=== PATIENT | male | born 1965 | race African-American/Black ===

== ENCOUNTER 2016-11-05 17:07 | Emergency (ER) | payer MEDICARE, MEDICAID ==
--- NOTE | 2016-11-05 17:31 | ER Document Report ---
ED Medical Screen (RME) - General Stated Complaint: LEG AND FOOT PAIN Time seen by provider: 17:29 Mode of Arrival: Ambulatory Information source: Patient Notes: 51-year-old male hypertensive, hemodialysis diabetic with a history of sores on his leg had a blister 3 days on the base of his right heel which broke open and now he sees raw skin. No history of ulcers. No fever. I have greeted and performed a rapid initial assessment of this patient. A comprehensive ED assessment, evaluation of the patient, analysis of test results , and completion of the medical decision making process will be contacted by additional ED providers. TRAVEL OUTSIDE OF THE [place] IN LAST 30 DAYS: No - Related Data Allergies/Adverse Reactions: acetaminophen [From Tylenol] Allergy (Severe, Verified 08/15/16 23:55) iodine [Iodine] Allergy (Severe, Verified 08/15/16 17:10) swelling, itching povidone-iodine [From Betadine] Allergy (Severe, Verified 08/15/16 17:10) rash Shellfish * [Shellfish] Allergy (Severe, Verified 08/15/16 17:10) Swelling of Throat Soap [From Betadine] Allergy (Severe, Verified 08/15/16 17:10) rash Past Medical History - Past Medical History Cardiac Medical History: Reports: Hx Congestive Heart Failure, Hx Hypercholesterolemia, Hx Hypertension Denies: Hx Coronary Artery Disease, Hx DVT, Hx Heart Attack, Hx Pulmonary Embolism Pulmonary Medical History: Reports: Hx Asthma, Hx COPD Denies: Hx Bronchitis, Hx Pneumonia, Hx Tuberculosis Neurological Medical History: Denies: Hx Cerebrovascular Accident, Hx Seizures Endocrine Medical History: Reports: Hx Diabetes Mellitus Type 2 Renal/ Medical History: Reports: Hx End Stage Renal Disease GI Medical History: Denies: Hx Cirrhosis, Hx Gastroesophageal Reflux Disease, Hx Hepatitis Musculoskeltal Medical History: Reports Hx Arthritis Psychiatric Medical History: Denies: Hx Depression Infectious Medical History: Denies: Hx Hepatitis Past Surgical History: Reports: Hx Appendectomy, Hx Cholecystectomy, Hx Orthopedic Surgery - right knee surgery, Hx Vascular Surgery - Immunizations Hx Diphtheria, Pertussis, Tetanus Vaccination: Yes - 2009 Physical Exam - Vital signs Vitals: Temp Pulse Resp BP Pulse Ox 98.6 F 112 H 20 221/98 H 95 11/05/16 17:23 11/05/16 17:23 11/05/16 17:23 11/05/16 17:23 11/05/16 17:23 Course - Vital Signs Vital signs: Temp Pulse Resp BP Pulse Ox 98.6 F 112 H 20 221/98 H 95 11/05/16 17:23 11/05/16 17:23 11/05/16 17:23 11/05/16 17:23 11/05/16 17:23
[2016-11-05 18:32] LABS: ABSOLUTE BASOPHILS # (AUTO) 0.1 10^3/uL (0.0-0.2); ABSOLUTE EOSINOPHILS # (AUTO) 0.2 10^3/uL (0.0-0.6); ABSOLUTE LYMPHOCYTES (AUTO) 1.1 10^3/uL (0.5-4.7); ABSOLUTE MONOCYTES (AUTO) 0.4 10^3/uL (0.1-1.4); ABSOLUTE NEUT (AUTO) 6.5 10^3/uL (1.7-8.2); BASOPHILS % (AUTO) 0.7 % (0-2); EOSINOPHILS % (AUTO) 2.9 % (0-6); HEMOGLOBIN 10.5 g/dL (13.5-17.0); HGB HCT DIFFERENCE -0.5; LYMPHOCYTES % (AUTO) 13.6 % (13-45); MEAN CORPUSCULAR HEMOGLOBIN 29.3 pg (27.0-33.4); MEAN CORPUSCULAR HGB CONC 32.8 g/dL (32.0-36.0); MEAN CORPUSCULAR VOLUME 89 fl (80-97); RED BLOOD COUNT 3.58 10^6/uL (4.35-5.55); RED CELL DISTRIBUTION WIDTH 17.2 % (11.5-14.0); SEGMENTED NEUTROPHILS % (AUTO) 77.8 % (42-78); WHITE BLOOD COUNT 8.4 10^3/uL (4.0-10.5)
[2016-11-05 18:56] LABS: ALANINE AMINOTRANSFERASE 30 U/L (21-72); ALBUMIN 4.5 g/dL (3.5-5.0); ALKALINE PHOSPHATASE 272 U/L (38-126); ASPARTATE AMINO TRANSFERASE 21 U/L (17-59); BILIRUBIN,TOTAL 0.9 mg/dL (0.2-1.3); BLOOD UREA NITROGEN 72 mg/dL (7-20); CALCIUM 10.1 mg/dL (8.4-10.2); CHLORIDE 100 mmol/L (98-107); CREATININE RESULT 10.66 mg/dL (0.52-1.25); GLUCOSE 136 mg/dL (75-110); POTASSIUM 4.2 mmol/L (3.6-5.0)
[2016-11-05 19:03] LABS: CARBON DIOXIDE 22 mmol/L (22-30); SODIUM 145.9 mmol/L (137-145)
[2016-11-05 19:05] LABS: ANION GAP 24 (5-19)
--- NOTE | 2016-11-05 19:08 | ER Document Report ---
HPI - HPI Patient complains to provider of: skin tear Pain Level: 3 Context: patient is a 51 year old male with HTN, ESRD on HD, CHF with edema p/w skin tear on RLE. Patient states he had a blister that tore. denies fever, chills, pain - REPRODUCTIVE Reproductive: DENIES: : - DERM Skin Color: Normal Past Medical History - General Information source: Patient - Social History Smoking Status: Current Some Day Smoker Chew tobacco use (# tins/day): No Frequency of alcohol use: None Drug Abuse: None Family History: Reviewed & Not Pertinent Patient has suicidal ideation: No Patient has homicidal ideation: No - Past Medical History Cardiac Medical History: Reports: Hx Congestive Heart Failure, Hx Hypercholesterolemia, Hx Hypertension Denies: Hx Coronary Artery Disease, Hx DVT, Hx Heart Attack, Hx Pulmonary Embolism Pulmonary Medical History: Reports: Hx Asthma, Hx COPD Denies: Hx Bronchitis, Hx Pneumonia, Hx Tuberculosis Neurological Medical History: Denies: Hx Cerebrovascular Accident, Hx Seizures Endocrine Medical History: Reports: Hx Diabetes Mellitus Type 2 Renal/ Medical History: Reports: Hx End Stage Renal Disease. Denies: Hx Peritoneal Dialysis GI Medical History: Denies: Hx Cirrhosis, Hx Gastroesophageal Reflux Disease, Hx Hepatitis Musculoskeltal Medical History: Reports Hx Arthritis Psychiatric Medical History: Denies: Hx Depression Infectious Medical History: Denies: Hx Hepatitis Past Surgical History: Reports: Hx Appendectomy, Hx Cholecystectomy, Hx Orthopedic Surgery - right knee surgery, Hx Vascular Surgery - Immunizations Hx Diphtheria, Pertussis, Tetanus Vaccination: Yes - 2009 Hx Pneumococcal Vaccination: 09/08/13 Vertical Provider Document - CONSTITUTIONAL Agree With Documented VS: Yes Exam Limitations: No Limitations General Appearance: WD/WN, No Apparent Distress - INFECTION CONTROL TRAVEL OUTSIDE OF THE [place] IN LAST 30 DAYS: No - RESPIRATORY O2 Sat by Pulse Oximetry: 95 - CARDIOVASCULAR Cardiovascular: Regular Rate, Regular Rhythm, No Murmur Pulses: Normal: Dorsalis pedis - MUSCULOSKELETAL/EXTREMETIES Musculoskeletal/Extremeties: Edema - 2+ pitting b/l LE's - NEURO Level of Consciousness: Awake, Alert, Appropriate Motor/Sensory: No Motor Deficit, No Sensory Deficit - DERM Integumentary: Warm, Dry - severely dry skin Notes: large 5cm wide skin tear with no tissue loss Course - Re-evaluation Re-evalutation: 11/05/16 19:09 Labs that were ordered in triage reveal baseline creatinine and BUN with patients end-stage renal disease. potassium 4.2. due for dialysis on Monday at [facility] skin tear closed with steri strips and covered with gauze d/c home with instruction to f/u with torpedoman's mate - Vital Signs Vital signs: Temp Pulse Resp BP Pulse Ox 98.6 F 112 H 20 221/98 H 95 11/05/16 17:23 11/05/16 17:23 11/05/16 17:23 11/05/16 17:23 11/05/16 17:23 - Laboratory Result Diagrams: 11/05/16 17:45 11/05/16 17:45 Laboratory results interpreted by me: 11/05/16 11/05/16 17:45 17:45 RBC 3.58 L Hgb 10.5 L Hct 32.0 L RDW 17.2 H Sodium 145.9 H Anion Gap 24 H BUN 72 H Creatinine 10.66 H Est GFR ( Amer) 6 L Est GFR (Non-Af Amer) 5 L Glucose 136 H Alkaline Phosphatase 272 H Discharge - Discharge Clinical Impression: Skin tear Condition: Good Disposition: HOME, SELF-CARE Instructions: Skin Tear ([facility]), Soap Cleansing ([facility]) Additional Instructions: Please follow-up with your torpedoman's mate or Dr. Mcclendon in one week. Forms: Elevated Blood Pressure Referrals: SARAHI MCCLENDON DO [NO LOCAL MD] - Follow up as needed
[2016-11-05 20:14] VITALS: BP 213/93
== END 2016-11-05 20:10 | disposition left against medical advice (07) ==
LOC: ER 17:07
DX: S81.811A Laceration without foreign body, right lower leg, initial encounter (principal); X58.XXXA Exposure to other specified factors, initial encounter; I13.2 Hypertensive heart and chronic kidney disease with heart failure and with stage 5 chronic kidney disease, or end stage renal disease; I50.9 Heart failure, unspecified; I12.0 Hypertensive chronic kidney disease with stage 5 chronic kidney disease or end stage renal disease; E11.22 Type 2 diabetes mellitus with diabetic chronic kidney disease; N18.6 End stage renal disease; Z99.2 Dependence on renal dialysis; F17.200 Nicotine dependence, unspecified, uncomplicated; J44.9 Chronic obstructive pulmonary disease, unspecified; J45.909 Unspecified asthma, uncomplicated
CPT/HCPCS: 36415; 80053; 85025; 87070; 87077; 87186; 87205; 99281

== ENCOUNTER → 2016-11-22 | Outpatient (CLI) | payer MEDICARE, MEDICAID | LOC: OD 12:06 | PROVIDERS: ATTEND Family Medicine | DX: M25.551 Pain in right hip (principal); M25.552 Pain in left hip | CPT/HCPCS: 73522 ==

== ENCOUNTER 2016-11-29 10:55 | Day surgery (SDC) | payer MEDICARE, MEDICAID ==
[2016-11-29] MEDS ORDERED: DIPHENHYDRAMINE HCL 50 MG/ML VIAL ONE (11:57)
[2016-11-29] MEDS ORDERED: ONDANSETRON HCL INJ/PF 4 MG/2 ML SDV ONE (11:57)
[2016-11-29] MEDS ORDERED: NALOXONE HCL INJ/PF 0.4 MG/1 ML SDV ONE (11:57)
[2016-11-29] MEDS ORDERED: PROMETHAZINE HCL INJ 25 MG/1 ML VIAL ONE (11:58)
[2016-11-29] MEDS ORDERED: MIDAZOLAM 2 MG/2 ML INJ ONE ×3 (11:58)
[2016-11-29] MEDS ORDERED: EPINEPHRINE INJ 1 MG/10 ML DISP.SYRIN ONE (11:59)
[2016-11-29] MEDS ORDERED: FLUMAZENIL INJ 0.5 MG/5 ML VIAL IV ONE (11:59)
[2016-11-29] MEDS ORDERED: GLUCAGON,HUMAN RECOMB 1 MG INJ ONE (11:59)
[2016-11-29] MEDS ORDERED: FENTANYL CITRATE INJ/PF 100 MCG/2 ML AMPUL ONE ×2 (11:59)
--- NOTE | 2016-11-29 13:43 | Operative Report ---
Operative Report DATE OF SURGERY: 11/29/16 Operative Report: The risks, benefits and alternatives of the procedure including risks of bleeding, perforation requiring surgery are explained to the patient in detail and informed consent is obtained. Patient is placed in the left lateral decubital position. Patient is taken back to the endoscopy suite. Timeout is called. Conscious sedation medications are provided. A rectal examination was done which did not reveal any masses, tears or fissures. An Olympus videoscope was inserted into the patient's rectum. The scope was then advanced all the way to the cecum. Prep is not good. About 1 L of irrigation had to be used in order to clean the colon. Despite that good visualization is not done. Patient states that he drank all the prep. From the cecum the scope was then sequentially pulled back out via the various segments of the colon. The ascending colon, hepatic flexure, transverse colon, splenic flexure, descending colon and finally into the rectosigmoid colon was evaluated. Random biopsies are taken in the right side of the colon. Patient may possibly have paradoxical diarrhea due to an impaction. No masses, polyps, AVMs, diverticulosis is noted. Retroflexion maneuvers performed. PREOPERATIVE DIAGNOSIS: Diarrhea, change of bowel habits POSTOPERATIVE DIAGNOSIS: Mild right-sided inflammation status post biopsy rule out collagenous, lymphocytic, microscopic colitis. OPERATION: Colonoscopy with biopsy SURGEON: ELIAZAR JIANG ANESTHESIA: LMAC - 2 mg of Versed, 25 g of fentanyl. TISSUE REMOVED OR ALTERED: Right-sided biopsies obtained. COMPLICATIONS: None. INTRAOPERATIVE FINDINGS: Described above. PROCEDURE: Patient tolerated procedure well. No immediate postprocedure complications are noted. Patient discharged in good condition. Discharge date 11/29/2016. Discharge diet: Regular. Discharge activity: Regular. Patient does have a 2-3 week follow-up to discuss findings. We'll await biopsies. Patient is instructed to go to dialysis tomorrow. He is instructed to call the office or proceed to the emergency room if there are any further problems or questions.
[2016-11-29 13:45] VITALS: BP 178/70
== END 2016-11-29 14:00 | disposition home or self-care (01) ==
LOC: END 10:55
PROVIDERS: ATTEND Internal Medicine Gastroenterology
PROC: 0DBF8ZX Excision of Right Large Intestine, Via Natural or Artificial Opening Endoscopic, Diagnostic (ICD-10-PCS; principal; 2016-11-29 12:00)
DX: K52.9 Noninfective gastroenteritis and colitis, unspecified (principal); I12.0 Hypertensive chronic kidney disease with stage 5 chronic kidney disease or end stage renal disease; E11.22 Type 2 diabetes mellitus with diabetic chronic kidney disease; N18.5 Chronic kidney disease, stage 5; E11.3599 Type 2 diabetes mellitus with proliferative diabetic retinopathy without macular edema, unspecified eye; E11.42 Type 2 diabetes mellitus with diabetic polyneuropathy; I48.0 Paroxysmal atrial fibrillation; M19.90 Unspecified osteoarthritis, unspecified site; E78.00 Pure hypercholesterolemia, unspecified; Z79.4 Long term (current) use of insulin; Z79.51 Long term (current) use of inhaled steroids
CPT/HCPCS: 45380; 82962; 88305 ×2; J2250; J3010; J0171; J1200; J1610; J2310; J2405; J2550; J3490

== ENCOUNTER 2016-12-18 13:32 | Emergency (ER) | payer MEDICARE, MEDICAID ==
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
[2016-12-18] MEDS ORDERED: CLONIDINE HCL 0.2 MG TABLET PO ONE (14:19)
[2016-12-18 15:02] LABS: ABSOLUTE BASOPHILS # (AUTO) 0.1 10^3/uL (0.0-0.2); ABSOLUTE EOSINOPHILS # (AUTO) 0.3 10^3/uL (0.0-0.6); ABSOLUTE LYMPHOCYTES (AUTO) 0.8 10^3/uL (0.5-4.7); ABSOLUTE MONOCYTES (AUTO) 0.5 10^3/uL (0.1-1.4); ABSOLUTE NEUT (AUTO) 6.7 10^3/uL (1.7-8.2); BASOPHILS % (AUTO) 0.8 % (0-2); EOSINOPHILS % (AUTO) 3.2 % (0-6); HEMATOCRIT 32.3 % (37.9-51.0); HEMOGLOBIN 10.7 g/dL (13.5-17.0); HGB HCT DIFFERENCE -0.2; LYMPHOCYTES % (AUTO) 10.1 % (13-45); MEAN CORPUSCULAR HEMOGLOBIN 29.2 pg (27.0-33.4); MEAN CORPUSCULAR VOLUME 88 fl (80-97); MONOCYTES % (AUTO) 5.7 % (3-13); RED BLOOD COUNT 3.65 10^6/uL (4.35-5.55); RED CELL DISTRIBUTION WIDTH 17.3 % (11.5-14.0); SEGMENTED NEUTROPHILS % (AUTO) 80.2 % (42-78); WHITE BLOOD COUNT 8.4 10^3/uL (4.0-10.5)
[2016-12-18 15:51] LABS: ALANINE AMINOTRANSFERASE 26 U/L (21-72); ALBUMIN 3.8 g/dL (3.5-5.0); ALKALINE PHOSPHATASE 223 U/L (38-126); ANION GAP 22 (5-19); ASPARTATE AMINO TRANSFERASE 20 U/L (17-59); BLOOD UREA NITROGEN 71 mg/dL (7-20); CARBON DIOXIDE 25 mmol/L (22-30); CHLORIDE 98 mmol/L (98-107); CREATINE KINASE 94 U/L (55-170); CREATININE RESULT 11.61 mg/dL (0.52-1.25); GLUCOSE 158 mg/dL (75-110); MAGNESIUM 1.7 mg/dL (1.6-2.3); POTASSIUM 4.2 mmol/L (3.6-5.0); SODIUM 144.8 mmol/L (137-145); TOTAL PROTEIN 7.3 g/dL (6.3-8.2)
[2016-12-18 16:04] LABS: CREATINE KINASE MB 1.63 ng/mL (<4.55)
[2016-12-18 16:09] LABS: TROPONIN I 0.046 ng/mL
[2016-12-18] MEDS ORDERED: FUROSEMIDE INJ/PF 100 MG/10 ML SDV IV ONE (16:38)
[2016-12-18] MEDS ORDERED: HYDRALAZINE HCL INJ/PF 20 MG/1 ML SDV IV ONE ×2 (17:35→17:49)
[2016-12-18 19:52] LABS: APPEARANCE,URINE TURBID; BILIRUBIN,URINE NEGATIVE (NEGATIVE); GLUCOSE, URINE >=500 mg/dL (NEGATIVE); KETONES,URINE NEGATIVE (NEGATIVE); LEUKOCYTE ESTERASE,URINE LARGE (NEGATIVE); NITRITE,URINE NEGATIVE (NEGATIVE); PROTEIN,URINE >=500 mg/dL (NEGATIVE); UROBILINOGEN,URINE NEGATIVE mg/dL (<2.0)
[2016-12-18 20:03] LABS: URINE BARBITURATES SCREEN NEGATIVE; URINE METHADONE SCREEN NEGATIVE; URINE OPIATES LOW NEGATIVE; URINE PHENCYCLIDINE SCREEN NEGATIVE
--- NOTE | 2016-12-18 20:08 | EKG REPORT ---
SEVERITY:- ABNORMAL ECG - SINUS RHYTHM PROBABLE LEFT ATRIAL ABNORMALITY PROLONGED QT INTERVAL : Confirmed by: Richie West 18-Dec-2016 20:07:34
[2016-12-18] MEDS ORDERED: CEPHALEXIN 500 MG CAPSULE PO ONE (20:43)
[2016-12-18] MEDS ORDERED: SULFAMETHOXAZOLE/TRIMETHOPRIM 800-160 MG TABLET PO ONE (20:51)
[2016-12-18 21:01] VITALS: BP 160/69
== END 2016-12-18 21:12 | disposition home or self-care (01) ==
LOC: ER 13:32
DX: S81.812A Laceration without foreign body, left lower leg, initial encounter (principal); R68.84 Jaw pain; W20.8XXA Other cause of strike by thrown, projected or falling object, initial encounter; Y92.481 Parking lot as the place of occurrence of the external cause; F14.10 Cocaine abuse, uncomplicated; J32.0 Chronic maxillary sinusitis; N39.0 Urinary tract infection, site not specified; I12.0 Hypertensive chronic kidney disease with stage 5 chronic kidney disease or end stage renal disease; E11.22 Type 2 diabetes mellitus with diabetic chronic kidney disease; N18.5 Chronic kidney disease, stage 5; Z99.2 Dependence on renal dialysis; Z91.14 Patient's other noncompliance with medication regimen; J44.9 Chronic obstructive pulmonary disease, unspecified; R05 Cough; F17.210 Nicotine dependence, cigarettes, uncomplicated; Z88.6 Allergy status to analgesic agent; Z88.3 Allergy status to other anti-infective agents; Z91.013 Allergy to seafood
CPT/HCPCS: 93005; 99291; 96374; 96375; 36415; 87086; 82553; 82550; 83735; 85025; 87088; 80053; 81001; 84484; 87186; 80307; 83880; 71010; 70486; 93010; A9270 ×2; J1940; J0360

== ENCOUNTER 2016-12-19 10:15 | Emergency (ER) | payer MEDICARE, MEDICAID ==
[2016-12-19 11:43] LABS: ABSOLUTE BASOPHILS # (AUTO) 0.1 10^3/uL (0.0-0.2); ABSOLUTE EOSINOPHILS # (AUTO) 0.3 10^3/uL (0.0-0.6); ABSOLUTE LYMPHOCYTES (AUTO) 0.7 10^3/uL (0.5-4.7); ABSOLUTE MONOCYTES (AUTO) 0.5 10^3/uL (0.1-1.4); ABSOLUTE NEUT (AUTO) 8.1 10^3/uL (1.7-8.2); EOSINOPHILS % (AUTO) 2.8 % (0-6); HEMATOCRIT 33.3 % (37.9-51.0); HEMOGLOBIN 10.7 g/dL (13.5-17.0); HGB HCT DIFFERENCE -1.2; LYMPHOCYTES % (AUTO) 6.8 % (13-45); MEAN CORPUSCULAR HEMOGLOBIN 28.5 pg (27.0-33.4); MEAN CORPUSCULAR VOLUME 89 fl (80-97); MONOCYTES % (AUTO) 4.7 % (3-13); RED BLOOD COUNT 3.74 10^6/uL (4.35-5.55); RED CELL DISTRIBUTION WIDTH 16.7 % (11.5-14.0); SEGMENTED NEUTROPHILS % (AUTO) 84.7 % (42-78); WHITE BLOOD COUNT 9.6 10^3/uL (4.0-10.5)
--- NOTE | 2016-12-19 11:45 | ER Document Report ---
ED Fall - General Chief Complaint: Fall Stated Complaint: ALTERED MENTAL STATUS Mode of Arrival: Medic Information source: Patient, Emergency Med Personnel TRAVEL OUTSIDE OF THE [place] IN LAST 30 DAYS: No - HPI Notes: Patient presents with report that he missed dialysis again this morning. He states he fell from his wheelchair yesterday and then was somewhat somnolent this morning. EMS blood sugar was 156 and patient had a good sinus rhythm and appropriate vital signs while in route with the exception of some mild hypertension. According to EMS, the patient awakened appropriately and was alert and interactive on my questioning upon arrival. Patient admits that he missed dialysis on Monday and today was due for dialysis. Patient does make urine, and he denies any significant dyspnea he reports no chest pain he denies any headache. He states he normally is in a wheelchair due to chronic foot drop. He denies any change in his bilateral lower extremity wounds. Patient was seen yesterday for the same had a chest x-ray and CT scan of the maxillofacial which showed no significant abnormality. He was found to be positive for cocaine. Patient denies any illegal drug use to me, but he did state that he was extremely tired from earlier and may have been sleeping. - Related data Allergies/Adverse Reactions: acetaminophen [From Tylenol] Allergy (Severe, Verified 11/29/16 11:10) iodine [Iodine] Allergy (Severe, Verified 11/29/16 11:10) swelling, itching povidone-iodine [From Betadine] Allergy (Severe, Verified 11/29/16 11:10) rash Shellfish * [Shellfish] Allergy (Severe, Verified 11/29/16 11:10) Swelling of Throat Soap [From Betadine] Allergy (Severe, Verified 11/29/16 11:10) rash Past Medical History - Social History Smoking Status: Unknown if Ever Smoked Drug Abuse: Cocaine Family History: Reviewed & Not Pertinent - Past Medical History Cardiac Medical History: Reports: Hx Congestive Heart Failure, Hx Hypercholesterolemia, Hx Hypertension Denies: Hx Coronary Artery Disease, Hx DVT, Hx Heart Attack, Hx Pulmonary Embolism Pulmonary Medical History: Reports: Hx Asthma, Hx COPD Denies: Hx Bronchitis, Hx Pneumonia, Hx Tuberculosis Neurological Medical History: Denies: Hx Cerebrovascular Accident, Hx Seizures Endocrine Medical History: Reports: Hx Diabetes Mellitus Type 2 Renal/ Medical History: Reports: Hx End Stage Renal Disease. Denies: Hx Peritoneal Dialysis GI Medical History: Denies: Hx Cirrhosis, Hx Gastroesophageal Reflux Disease, Hx Hepatitis Musculoskeltal Medical History: Reports Hx Arthritis Psychiatric Medical History: Denies: Hx Depression Infectious Medical History: Denies: Hx Hepatitis Past Surgical History: Reports: Hx Appendectomy, Hx Cholecystectomy, Hx Orthopedic Surgery - right knee surgery, Hx Vascular Surgery - Immunizations Hx Diphtheria, Pertussis, Tetanus Vaccination: Yes - 2009 Hx Pneumococcal Vaccination: 09/08/13 Review of Systems - Review of Systems Notes: REVIEW OF SYSTEMS: CONSTITUTIONAL : Denies fever, chills, or sweats. Denies recent illness. EENT: Denies eye, ear, throat, or mouth pain or symptoms. Denies nasal or sinus congestion or discharge. Denies throat, tongue, or mouth swelling or difficulty swallowing. CARDIOVASCULAR: Denies chest pain. Denies palpitations or racing or irregular heart beat. Denies ankle edema. RESPIRATORY: Denies cough, cold, or chest congestion. Denies shortness of breath, difficulty breathing, or wheezing. GASTROINTESTINAL: Denies abdominal pain or distention. Denies nausea, vomiting , or diarrhea. Denies blood in vomitus, stools, or per rectum. Denies black, tarry stools. Denies constipation. GENITOURINARY: Denies difficulty urinating, painful urination, burning, frequency, blood in urine, or discharge. MUSCULOSKELETAL: Denies back or neck pain or stiffness. Denies joint pain or swelling. SKIN: Unchanged sores to both lower extremities. HEMATOLOGIC : Denies easy bruising or bleeding. LYMPHATIC: Denies swollen, enlarged glands. NEUROLOGICAL: Denies dizziness or lightheadedness. Denies headache. Patient denies any new weakness or numbness beyond his chronic baseline. He reports no incontinence. PSYCHIATRIC: Denies anxiety or stress. Denies depression, suicidal ideation, or homicidal ideation. ALL OTHER SYSTEMS REVIEWED AND NEGATIVE. Dictation was performed using [employer] voice recognition software Physical Exam - Vital signs Vitals: Temp Resp BP Pulse Ox 97.7 F 18 199/88 H 98 12/19/16 10:31 12/19/16 10:31 12/19/16 10:31 12/19/16 10:31 - Notes Notes: PHYSICAL EXAMINATION: GENERAL: Well-appearing, well-nourished and in no acute distress. HEAD: Atraumatic, normocephalic. EYES: Pupils equal round and reactive to light, extraocular movements intact, sclera anicteric, conjunctiva mildly injected bilaterally but there is no photophobia. Anterior chambers are clear ENT: Nares patent, oropharynx clear without exudates. Moist mucous membranes. NECK: Normal range of motion, supple without lymphadenopathy LUNGS: Breath sounds equal. No wheezes or rhonchi. Scant rales noted bilaterally HEART: Regular rate and rhythm with 1/6 systolic ejection murmur over the apex. ABDOMEN: Soft, nontender, nondistended abdomen. No guarding, no rebound. No masses appreciated. Musculoskeletal: No cyanosis. Nontender NEUROLOGICAL: Cranial nerves grossly intact. Normal speech, normal gait. Normal sensory, motor exams. patient has mild chronic foot drop noted right greater than left. There is good extensor strength. No other neurologic defects noted.. PSYCH: Normal mood, normal affect. SKIN: Warm, Dry, patient has right great toe small stage II decubitus without evidence for infection. Patient has left anterior [place] stage II decubitus without obvious evidence for infection. Course - Re-evaluation Re-evalutation: 12/19/16 11:47 Left leg wound was rewrapped with Telfa and gauze. No evidence for acute injury, hypoglycemia, cardiac ischemia or arrhythmia. No gross hypoxia or evidence for congestive heart failure, the patient needs dialysis to be performed today given his hypertension and the fact that he missed his Monday dialysis also. Dialysis Center will be contacted immediately to have dialysis performed. Again I have instructed the patient that he needs to avoid cocaine use and to follow-up with his regular practitioner. There is no current evidence suggestive for TIA or CVA or acute neurologic deficit. 12/19/16 11:50 - Vital Signs Vital signs: Temp Pulse Resp BP Pulse Ox 97.7 F 18 199/88 H 98 12/19/16 10:31 12/19/16 10:31 12/19/16 10:31 12/19/16 10:31 - Laboratory Result Diagrams: 12/19/16 11:26 12/19/16 11:26 Laboratory results interpreted by me: 12/19/16 11:11 POC Glucose 112 H - EKG Interpretation by [facility] EKG shows normal: Sinus rhythm Additional EKG results interpreted by me: EKG as interpreted by oh showed normal sinus rhythm heart rate of 80. There is no gross evidence for acute AK or ischemia. Otherwise normal intervals. 12/19/16 11:49 Discharge - Discharge Clinical Impression: Stage II decubitus ulcer, Uncontrolled hypertension, Medical non-compliance, Accidental fall Condition: Stable Disposition: HOME, SELF-CARE
[2016-12-19 12:07] LABS: ALANINE AMINOTRANSFERASE 27 U/L (21-72); ALBUMIN 3.9 g/dL (3.5-5.0); ALCOHOL < 10 mg/dL (NONE DETECTED); ALKALINE PHOSPHATASE 241 U/L (38-126); ANION GAP 23 (5-19); ASPARTATE AMINO TRANSFERASE 21 U/L (17-59); BILIRUBIN,TOTAL 0.8 mg/dL (0.2-1.3); BLOOD UREA NITROGEN 78 mg/dL (7-20); CALCIUM 9.8 mg/dL (8.4-10.2); CARBON DIOXIDE 21 mmol/L (22-30); CHLORIDE 98 mmol/L (98-107); CREATININE RESULT 12.59 mg/dL (0.52-1.25); GLUCOSE 128 mg/dL (75-110); MAGNESIUM 1.9 mg/dL (1.6-2.3); POTASSIUM 4.7 mmol/L (3.6-5.0); SODIUM 141.6 mmol/L (137-145); TOTAL PROTEIN 7.5 g/dL (6.3-8.2)
[2016-12-19 12:28] VITALS: BP 186/94
--- NOTE | 2016-12-19 13:47 | EKG REPORT ---
SEVERITY:- BORDERLINE ECG - SINUS RHYTHM PROBABLE LEFT ATRIAL ABNORMALITY BORDERLINE PROLONGED QT INTERVAL : Confirmed by: Richie West 19-Dec-2016 13:47:05
== END 2016-12-19 12:25 | disposition home or self-care (01) ==
LOC: ER 10:15
DX: L89.892 Pressure ulcer of other site, stage 2 (principal); W05.0XXA Fall from non-moving wheelchair, initial encounter; E11.22 Type 2 diabetes mellitus with diabetic chronic kidney disease; M21.372 Foot drop, left foot; M21.371 Foot drop, right foot; I13.2 Hypertensive heart and chronic kidney disease with heart failure and with stage 5 chronic kidney disease, or end stage renal disease; N18.6 End stage renal disease; E78.00 Pure hypercholesterolemia, unspecified; J45.909 Unspecified asthma, uncomplicated; J44.9 Chronic obstructive pulmonary disease, unspecified; I50.9 Heart failure, unspecified; Z91.14 Patient's other noncompliance with medication regimen; Z99.2 Dependence on renal dialysis; Z88.6 Allergy status to analgesic agent; Z91.013 Allergy to seafood
CPT/HCPCS: 36415; 80053; 80307; 82962; 83735; 85025; 93005; 93010; 99284

== ENCOUNTER 2016-12-25 10:59 | Emergency (ER) | payer MEDICARE, MEDICAID ==
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
[2016-12-25] MEDS ORDERED: HYDROMORPHONE HCL INJ/PF 2 MG/ML AMPULE IM ONE (13:00)
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
[2016-12-25] MEDS ORDERED: CLONIDINE HCL 0.2 MG TABLET PO ONE (14:35)
[2016-12-25] MEDS ORDERED: CYCLOBENZAPRINE HCL 10 MG TABLET PO ONE (14:50)
[2016-12-25] MEDS ORDERED: KETOROLAC TROMETHAMINE INJ/PF 30 MG/1 ML SDV IV ONE (14:52)
[2016-12-25 15:05] LABS: ABSOLUTE BASOPHILS # (AUTO) 0.1 10^3/uL (0.0-0.2); ABSOLUTE EOSINOPHILS # (AUTO) 0.2 10^3/uL (0.0-0.6); ABSOLUTE LYMPHOCYTES (AUTO) 0.8 10^3/uL (0.5-4.7); ABSOLUTE MONOCYTES (AUTO) 0.4 10^3/uL (0.1-1.4); ABSOLUTE NEUT (AUTO) 5.6 10^3/uL (1.7-8.2); BASOPHILS % (AUTO) 1.2 % (0-2); EOSINOPHILS % (AUTO) 2.3 % (0-6); HEMATOCRIT 30.1 % (37.9-51.0); HEMOGLOBIN 9.7 g/dL (13.5-17.0); LYMPHOCYTES % (AUTO) 11.1 % (13-45); MEAN CORPUSCULAR HEMOGLOBIN 28.9 pg (27.0-33.4); MEAN CORPUSCULAR HGB CONC 32.3 g/dL (32.0-36.0); MEAN CORPUSCULAR VOLUME 90 fl (80-97); MONOCYTES % (AUTO) 5.3 % (3-13); RED BLOOD COUNT 3.36 10^6/uL (4.35-5.55); RED CELL DISTRIBUTION WIDTH 17.4 % (11.5-14.0); SEGMENTED NEUTROPHILS % (AUTO) 80.1 % (42-78); WHITE BLOOD COUNT 6.9 10^3/uL (4.0-10.5)
[2016-12-25 15:21] LABS: ALANINE AMINOTRANSFERASE 44 U/L (21-72); ALBUMIN 3.9 g/dL (3.5-5.0); ALKALINE PHOSPHATASE 248 U/L (38-126); ASPARTATE AMINO TRANSFERASE 44 U/L (17-59); BILIRUBIN,TOTAL 0.9 mg/dL (0.2-1.3); BLOOD UREA NITROGEN 112 mg/dL (7-20); CALCIUM 10.2 mg/dL (8.4-10.2); CARBON DIOXIDE 20 mmol/L (22-30); CHLORIDE 99 mmol/L (98-107); GLUCOSE 90 mg/dL (75-110); TOTAL PROTEIN 7.4 g/dL (6.3-8.2)
[2016-12-25 15:30] LABS: CREATININE RESULT 15.49 mg/dL (0.52-1.25)
[2016-12-25 15:37] LABS: SODIUM 145.6 mmol/L (137-145)
[2016-12-25 15:39] LABS: ANION GAP 27 (5-19)
[2016-12-25] MEDS ORDERED: DIPHENHYDRAMINE HCL 50 MG/ML VIAL IV ONE (16:14)
[2016-12-25] MEDS ORDERED: OXYCODONE-ACETAMINOPHEN 5-325 MG TABLET PO ONE (16:14)
[2016-12-25] MEDS ORDERED: HYDRALAZINE HCL INJ/PF 20 MG/1 ML SDV IV ONE (16:14)
[2016-12-25 17:12] VITALS: BP 150/109
--- NOTE | 2016-12-25 20:38 | EKG REPORT ---
SEVERITY:- ABNORMAL ECG - SINUS RHYTHM LEFT ATRIAL ABNORMALITY BORDERLINE PROLONGED QT INTERVAL : Confirmed by: Sunshine Menendez MD 25-Dec-2016 20:38:11
== END 2016-12-25 17:12 | disposition home or self-care (01) ==
LOC: ER 10:59
DX: S39.012D Strain of muscle, fascia and tendon of lower back, subsequent encounter (principal); N18.6 End stage renal disease; M54.5 Low back pain; G89.29 Other chronic pain; I12.0 Hypertensive chronic kidney disease with stage 5 chronic kidney disease or end stage renal disease; Z91.14 Patient's other noncompliance with medication regimen; F17.200 Nicotine dependence, unspecified, uncomplicated; X58.XXXA Exposure to other specified factors, initial encounter
CPT/HCPCS: 93005; 99285; 96372; 96374; 96375; 36415; 85025; 80053; 71111; 72131; 93010; A9270 ×3; J1200; J0360; J1885; J1170

== ENCOUNTER 2017-01-17 17:46 | Inpatient (IN) | payer MEDICARE ==
--- NOTE | 2017-01-17 18:51 | ER Document Report ---
ED Medical Screen (RME) - General Chief Complaint: Numbness Stated Complaint: LEFT LEG NUMBNESS Notes: This 51-year-old male dialysis patient comes emergency room complaining of numbness to the left leg. States she cannot feel anything. He reports falling this past Monday and the previous Monday. He reports the no feeling in the left leg started with the fall a week ago. After the fall he also has more pain with his chronic low back pain than usual. He states he did go to dialysis yesterday. He wants to be admitted to the hospital, as he states there is no one at home to help take care of him. He is known to be noncompliant with medications. He was seen here a month ago complaining of multiple pains, his blood pressure was extremely high and was found to be positive for cocaine at that time. I have greeted and performed a rapid initial assessment of this patient. A comprehensive ED assessment and evaluation of the patient, analysis of test results and completion of the medical decision making process will be conducted by additional ED providers. TRAVEL OUTSIDE OF THE [place] IN LAST 30 DAYS: No - Related Data Allergies/Adverse Reactions: acetaminophen [From Tylenol] Allergy (Severe, Verified 01/17/17 18:20) iodine [Iodine] Allergy (Severe, Verified 01/17/17 18:20) swelling, itching povidone-iodine [From Betadine] Allergy (Severe, Verified 01/17/17 18:20) rash Shellfish * [Shellfish] Allergy (Severe, Verified 01/17/17 18:20) Swelling of Throat Soap [From Betadine] Allergy (Severe, Verified 01/17/17 18:20) rash Past Medical History - Past Medical History Cardiac Medical History: Reports: Hx Congestive Heart Failure, Hx Hypercholesterolemia, Hx Hypertension Denies: Hx Coronary Artery Disease, Hx DVT, Hx Heart Attack, Hx Pulmonary Embolism Pulmonary Medical History: Reports: Hx Asthma, Hx COPD Denies: Hx Bronchitis, Hx Pneumonia, Hx Tuberculosis Neurological Medical History: Denies: Hx Cerebrovascular Accident, Hx Seizures Endocrine Medical History: Reports: Hx Diabetes Mellitus Type 2 Renal/ Medical History: Reports: Hx End Stage Renal Disease. Denies: Hx Peritoneal Dialysis GI Medical History: Denies: Hx Cirrhosis, Hx Gastroesophageal Reflux Disease, Hx Hepatitis Musculoskeltal Medical History: Reports Hx Arthritis Psychiatric Medical History: Denies: Hx Depression Infectious Medical History: Denies: Hx Hepatitis Past Surgical History: Reports: Hx Appendectomy, Hx Cholecystectomy, Hx Orthopedic Surgery - right knee surgery, Hx Vascular Surgery - Immunizations Hx Diphtheria, Pertussis, Tetanus Vaccination: Yes - 2009 Physical Exam - Vital signs Vitals: Temp Pulse Resp BP Pulse Ox 98.1 F 102 H 18 180/92 H 99 01/17/17 18:21 01/17/17 18:21 01/17/17 18:21 01/17/17 18:21 01/17/17 18:21 Course - Vital Signs Vital signs: Temp Pulse Resp BP Pulse Ox 98.1 F 102 H 18 180/92 H 99 01/17/17 18:21 01/17/17 18:21 01/17/17 18:21 01/17/17 18:21 01/17/17 18:21
[2017-01-17 19:08] LABS: ABSOLUTE BASOPHILS # (AUTO) 0.1 10^3/uL (0.0-0.2); ABSOLUTE EOSINOPHILS # (AUTO) 0.2 10^3/uL (0.0-0.6); ABSOLUTE LYMPHOCYTES (AUTO) 0.8 10^3/uL (0.5-4.7); ABSOLUTE MONOCYTES (AUTO) 0.3 10^3/uL (0.1-1.4); ABSOLUTE NEUT (AUTO) 7.5 10^3/uL (1.7-8.2); BASOPHILS % (AUTO) 0.8 % (0-2); EOSINOPHILS % (AUTO) 1.8 % (0-6); HEMATOCRIT 22.5 % (37.9-51.0); HGB HCT DIFFERENCE -0.3; LYMPHOCYTES % (AUTO) 8.8 % (13-45); MEAN CORPUSCULAR HEMOGLOBIN 29.6 pg (27.0-33.4); MEAN CORPUSCULAR VOLUME 90 fl (80-97); MONOCYTES % (AUTO) 3.8 % (3-13); RED CELL DISTRIBUTION WIDTH 19.1 % (11.5-14.0); SEGMENTED NEUTROPHILS % (AUTO) 84.8 % (42-78); WHITE BLOOD COUNT 8.9 10^3/uL (4.0-10.5)
[2017-01-17 19:45] LABS: HEMOGLOBIN 7.4 g/dL (13.5-17.0)
--- NOTE | 2017-01-17 20:58 | ER Document Report ---
ED General - General Chief Complaint: Numbness Stated Complaint: LEFT LEG NUMBNESS Time seen by provider: 20:50 Notes: Patient is a 51-year-old male that comes emergency department for chief complaint of "numbness" in the left leg area, he states he cannot feel his leg, he states noticeable area is in his medial thigh area (he points to the area of his proximal medial thigh). He states he's been feeling weak. He states he has had falls at home, states he fell Monday, fell Monday 3 times, states that ever since Monday he has had the numbness sensation and also has been feeling his chronic lower back pain more than usual. When asked patient admits that he has had black stools for the past 2 days. Patient has had a normal colonoscopy within the past few months, denies history of GI bleed, denies blood thinner use. Patient has multiple comorbidities including end-stage renal disease, had dialysis yesterday, COPD, type II diabetes, and history of medication noncompliance and drug abuse. Patient states he feels like he can't take care of himself, states Dr. Mcclendon his primary care is working on a long-term care facility but this has not happened yet. TRAVEL OUTSIDE OF THE [place] IN LAST 30 DAYS: No - Related Data Allergies/Adverse Reactions: acetaminophen [From Tylenol] Allergy (Severe, Verified 01/17/17 18:20) iodine [Iodine] Allergy (Severe, Verified 01/17/17 18:20) swelling, itching povidone-iodine [From Betadine] Allergy (Severe, Verified 01/17/17 18:20) rash Shellfish * [Shellfish] Allergy (Severe, Verified 01/17/17 18:20) Swelling of Throat Soap [From Betadine] Allergy (Severe, Verified 01/17/17 18:20) rash Past Medical History - General Information source: Patient - Social History Smoking Status: Never Smoker Drug Abuse: Cocaine Lives with: Family Family History: Reviewed & Not Pertinent Patient has suicidal ideation: No Patient has homicidal ideation: No - Past Medical History Cardiac Medical History: Reports: Hx Congestive Heart Failure, Hx Hypercholesterolemia, Hx Hypertension Denies: Hx Coronary Artery Disease, Hx DVT, Hx Heart Attack, Hx Pulmonary Embolism Pulmonary Medical History: Reports: Hx Asthma, Hx COPD Denies: Hx Bronchitis, Hx Pneumonia, Hx Tuberculosis Neurological Medical History: Denies: Hx Cerebrovascular Accident, Hx Seizures Endocrine Medical History: Reports: Hx Diabetes Mellitus Type 2 Renal/ Medical History: Reports: Hx End Stage Renal Disease. Denies: Hx Peritoneal Dialysis GI Medical History: Denies: Hx Cirrhosis, Hx Gastroesophageal Reflux Disease, Hx Hepatitis Musculoskeltal Medical History: Reports Hx Arthritis Psychiatric Medical History: Denies: Hx Depression Infectious Medical History: Denies: Hx Hepatitis Past Surgical History: Reports: Hx Appendectomy, Hx Cholecystectomy, Hx Orthopedic Surgery - right knee surgery, Hx Vascular Surgery - Immunizations Hx Diphtheria, Pertussis, Tetanus Vaccination: Yes - 2009 Hx Pneumococcal Vaccination: 09/08/13 Review of Systems - Review of Systems Constitutional: See HPI EENT: No symptoms reported Cardiovascular: No symptoms reported Respiratory: No symptoms reported Gastrointestinal: See HPI Genitourinary: No symptoms reported Male Genitourinary: No symptoms reported Musculoskeletal: See HPI Skin: No symptoms reported Hematologic/Lymphatic: No symptoms reported Neurological/Psychological: See HPI Physical Exam - Vital signs Vitals: Temp Pulse Resp BP Pulse Ox 98.1 F 102 H 18 180/92 H 99 01/17/17 18:21 01/17/17 18:21 01/17/17 18:21 01/17/17 18:21 01/17/17 18:21 Interpretation: Normal - General General appearance: Other - Patient is disheveled, unshowered, somewhat chronically ill-appearing - HEENT Head: Normocephalic, Atraumatic Eyes: Normal Conjunctiva: Normal Extraocular movements intact: Yes Eyelashes: Normal Pupils: PERRL Nasal: Normal Mouth/Lips: Normal Mucous membranes: Normal Pharynx: Normal Neck: Normal - Respiratory Respiratory status: No respiratory distress Chest status: Nontender Breath sounds: Normal. No: Decreased air movement, Wheezing Chest palpation: Normal - Cardiovascular Rhythm: Regular. No: Tachycardia Heart sounds: Normal auscultation, S1 appreciated, S2 appreciated Murmur: No - Abdominal Inspection: Normal Distension: No distension Bowel sounds: Normal Tenderness: Nontender. No: Tender, Guarding Organomegaly: No organomegaly - Rectal Stool: Other - small amount of blackish stool mixed with brown Hemorrhoids: None Prostate: No: Tender - Back Back: Normal, Nontender. No: Tender - Extremities General upper extremity: Normal inspection, Nontender, Normal strength, Normal temperature, Other - Left arm with dialysis arm port General lower extremity: Other - patient limps with bearing weight on left leg, Mild bilateral LE edema, some venous stasis staining bilaterally, pulses intact , sensation decreased generally. 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 X-rays unremarkable. Patient does admits to chronic distal bilateral lower extremity neuropathy. Patient chronically ill-appearing but is not toxic in appearance. Patient with multiple complaints but the black stools most concerning, performed rectal exam and saw some black stools mixed in with brown. Patient denies history of abdominal bleed, is not on blood thinner, had a normal colonoscopy recently that no endoscopy, patient also has abused cocaine. Abdomen is nontender. Patient is not hypotensive, not tachycardic on my exam, however hemoglobin is only 7.4. This is significantly decreased from prior despite not being microcytic. Clear lungs on examination, no evidence of fluid overload by examination of the patient is borderline hypertensive. Potassium 5.2, patient had dialysis yesterday. Ordering transfusion, starting Protonix, patient will be discussed with hospitalist, confirmed with Dr. Pitts. 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 Discussed with Dr. Cerda, internal medicine, patient will be admitted to the hospital. - Vital Signs Vital signs: Temp Pulse Resp BP Pulse Ox 98.2 F 97 18 171/87 H 97 01/18/17 02:22 01/18/17 02:22 01/18/17 02:22 01/18/17 02:22 01/18/17 02:22 - Laboratory Result Diagrams: 01/17/17 18:50 01/17/17 22:20 Laboratory results interpreted by me: 01/17/17 01/17/17 01/17/17 18:50 18:50 22:20 RBC 2.50 L Hgb 7.4 L Hct 22.5 L RDW 19.1 H Seg Neutrophils % 84.8 H Lymphocytes % 8.8 L Retic Count (auto) 3.74 H PT APTT Potassium 5.2 H Chloride 97 L Carbon Dioxide 16 L Anion Gap 31 H BUN 106 H Creatinine 15.68 H Est GFR ( Amer) 4 L Est GFR (Non-Af Amer) 3 L Calcium 10.3 H TIBC Ferritin Direct Bilirubin 1.1 H Alkaline Phosphatase 270 H Vitamin B12 Crossmatch 01/17/17 01/17/17 01/17/17 22:50 22:50 22:50 RBC Hgb Hct RDW Seg Neutrophils % Lymphocytes % Retic Count (auto) PT 17.0 H APTT 41.4 H Potassium Chloride Carbon Dioxide Anion Gap BUN Creatinine Est GFR ( Amer) Est GFR (Non-Af Amer) Calcium TIBC 167 L Ferritin 1090.00 H Direct Bilirubin Alkaline Phosphatase Vitamin B12 > 1000.0 H Crossmatch See Detail Discharge - Discharge Clinical Impression: Upper GI bleed, Anemia requiring transfusions Fall Qualifiers: Encounter type: initial encounter Qualified Code(s): W19.XXXA - Unspecified fall, initial encounter Condition: Stable Disposition: ADMITTED INPATIENT Admitting Provider: Hospitalist Unit Admitted: Telemetry
[2017-01-17 22:58] LABS: ALANINE AMINOTRANSFERASE 27 U/L (21-72); ALBUMIN 3.7 g/dL (3.5-5.0); ALKALINE PHOSPHATASE 270 U/L (38-126); ASPARTATE AMINO TRANSFERASE 25 U/L (17-59); BILIRUBIN,DIRECT 1.1 mg/dL (0.0-0.4); BILIRUBIN,TOTAL 1.2 mg/dL (0.2-1.3); BLOOD UREA NITROGEN 106 mg/dL (7-20); CALCIUM 10.3 mg/dL (8.4-10.2); CHLORIDE 97 mmol/L (98-107); CREATINE KINASE 95 U/L (55-170); GLUCOSE 109 mg/dL (75-110); POTASSIUM 5.2 mmol/L (3.6-5.0); TOTAL PROTEIN 7.4 g/dL (6.3-8.2)
[2017-01-17 23:04] LABS: CREATININE RESULT 15.68 mg/dL (0.52-1.25)
[2017-01-17 23:18] LABS: CARBON DIOXIDE 16 mmol/L (22-30); SODIUM 143.6 mmol/L (137-145)
[2017-01-17 23:20] LABS: ANION GAP 31 (5-19)
[2017-01-17] MEDS ORDERED: PANTOPRAZOLE SODIUM 40 MG VIAL IV ONE (23:31)
[2017-01-17 23:32] LABS: PARTIAL THROMBOPLASTIN TIME 41.4 SEC (23.5-35.8)
[2017-01-17] MEDS ORDERED: PANTOPRAZOLE SODIUM 40 MG VIAL IV PRN (23:32)
[2017-01-17] MEDS ORDERED: NORMAL SALINE 250 ML IV PRN ×2 (23:32)
[2017-01-18] MEDS ORDERED: LORATADINE 10 MG TABLET PO PRN (00:15)
[2017-01-18] MEDS ORDERED: HYDRALAZINE HCL INJ/PF 20 MG/1 ML SDV IV PRN (00:19)
[2017-01-18] MEDS ORDERED: IPRATROPIUM/ALBUTEROL 0.5-2.5 MG/3 ML AMPUL NEB PRN (00:24)
[2017-01-18] MEDS ORDERED: GLUCAGON,HUMAN RECOMB 1 MG INJ SUBCUT PRN (00:24)
[2017-01-18] MEDS ORDERED: ONDANSETRON HCL INJ/PF 4 MG/2 ML SDV IV PRN (00:24)
[2017-01-18] MEDS ORDERED: DEXTROSE 50%-WATER 25 GM/50 ML DISP.SYRIN IV PRN ×2 (00:24)
[2017-01-18] MEDS ORDERED: NICOTINE 14 MG/24 HR PATCH.TD24 TD PRN (00:24)
[2017-01-18] MEDS ORDERED: DEXTROSE 40% GEL 15 GM TUBE PO PRN ×2 (00:24)
[2017-01-18] MEDS ORDERED: PHYTONADIONE INJ 10 MG/1 ML AMPULE SUBCUT ONE (00:45)
[2017-01-18] MEDS ORDERED: LACTULOSE SYRUP 20 GM/30 ML UDCUP PO ONE (00:45)
[2017-01-18] MEDS ORDERED: NICOTINE 14 MG/24 HR PATCH.TD24 TD ONE (00:45)
--- NOTE | 2017-01-18 01:11 | PDOC H&P ---
History of Present Illness Admission Date/PCP: 01/17/17 23:58 SARAHI YEUNG DO Patient complains of: Falls History of Present Illness: NATHEN DING is a 51 year old male with an extensive past medical history of end-stage renal failure on hemodialysis Monday, Monday and Monday, persistent tobacco dependence, COPD, congestive heart failure, insulin- dependent diabetes, and cocaine positive urine December 2016. In his usual state of health until approximately 3 days ago noted excessive weakness upon transfer sustaining a recent fall to his left side propping his seek evaluation emergency room where his found to have an unremarkable image to his left hip but is found to have anemia with a hemoglobin of 7.4 from a baseline of 9, with heme positive stool. Patient denies dark urine or stool admits recent unremarkable colonoscopy. Denies any recent change in medications. Past Medical History Cardiac Medical History: Reports: Congestive Heart Failure, Hyperlipidema, Hypertension Denies: Coronary Artery Disease, DVT, Myocardial Infarction, Pulmonary Embolism Pulmonary Medical History: Reports: Asthma, Chronic Obstructive Pulmonary Disease (COPD) Denies: Bronchitis, Pneumonia, Tuberculosis Neurological Medical History: Denies: Seizures Endocrine Medical History: Reports: Diabetes Mellitus Type 2 Renal/ Medical History: Reports: End Stage Renal Disease GI Medical History: Denies: Cirrhosis, Gastroesophageal Reflux Disease, Hepatitis Musculoskeltal Medical History: Reports: Arthritis Psychiatric Medical History: Denies: Depression Hematology: Reports: Anemia Past Surgical History Past Surgical History: Reports: Appendectomy, Cholecystectomy, Orthopedic Surgery - right knee surgery, Vascular Surgery Social History Information Source: Patient, [facility] Records Lives with: Alone Smoking Status: Unknown if Ever Smoked Frequency of Alcohol Use: None Hx Recreational Drug Use: No Drugs: None Hx Prescription Drug Abuse: No - Advance Directive Resuscitation Status: Full Code Family History Family History: COPD, Hypertension Parental Family History Reviewed: Yes Children Family History Reviewed: Yes Sibling(s) Family History Reviewed.: Yes Medication/Allergy Home Medications: Omeprazole 20 mg PO DAILY 07/05/16 Sevelamer Carbonate [Renvela] 800 mg PO TID 07/05/16 Vit B Cmplx 3/FA/Vit C/Biotin [Swati-Anoop Rx Tablet] 1 each PO DAILY 07/05/16 Clonidine HCl 0.3 mg PO BID 08/15/16 Insulin Glargine,Hum.rec.anlog [Lantus] 78 unit SQ QHS 08/15/16 Ipratropium/Albuterol Sulfate [Iprat-Albut 0.5-3(2.5) mg/3 ml] 3 ml IH TID 08/15 Lidocaine/Prilocaine [Lidopril 2.5%-2.5% Cream-Dress] 1 each TP ASDIR PRN Metoprolol Succinate 200 mg PO DAILY 08/15/16 Albuterol Sulfate [Albuterol Sulfate 2.5mg/3 mL] 1 vial IH Q4 PRN #30 vial 10/01 Cetirizine HCl 10 mg PO BID PRN #20 tab.chew 10/01/16 Doxycycline Hyclate 100 mg PO BID #14 capsule 10/01/16 Sulfamethoxazole/Trimethoprim [Septra-Ds 800-160 mg Tablet] 1 tab PO BID #20 tablet 12/18/16 Hydrocodone/Acetaminophen [Lortab 5-325 mg Tablet] 1 each PO Q6H PRN #12 tablet 12/25/16 Allergies/Adverse Reactions: acetaminophen [From Tylenol] Allergy (Severe, Verified 01/17/17 18:20) iodine [Iodine] Allergy (Severe, Verified 01/17/17 18:20) swelling, itching povidone-iodine [From Betadine] Allergy (Severe, Verified 01/17/17 18:20) rash Shellfish * [Shellfish] Allergy (Severe, Verified 01/17/17 18:20) Swelling of Throat Soap [From Betadine] Allergy (Severe, Verified 01/17/17 18:20) rash Review of Systems Constitutional: PRESENT: as per HPI, fatigue, weakness. ABSENT: anorexia, chills, fever(s), headache(s), weight gain Eyes: ABSENT: visual disturbances Ears: ABSENT: hearing changes Cardiovascular: ABSENT: chest pain, dyspnea on exertion, edema, orthropnea, palpitations Respiratory: ABSENT: cough, hemoptysis Gastrointestinal: ABSENT: abdominal pain, constipation, diarrhea, hematemesis, hematochezia, nausea, vomiting Genitourinary: ABSENT: dysuria, hematuria Musculoskeletal: PRESENT: back pain - Chronic Integumentary: PRESENT: other - Chronic skin changes of vascular insufficiency of the lower extremity bilaterally evidence of previous ulcerations. ABSENT: rash, wounds Neurological: ABSENT: abnormal gait, abnormal speech, confusion, dizziness, focal weakness, syncope Psychiatric: ABSENT: anxiety, depression, homidical ideation, suicidal ideation Endocrine: ABSENT: cold intolerance, heat intolerance, polydipsia, polyuria Hematologic/Lymphatic: PRESENT: easy bruising. ABSENT: easy bleeding Physical Exam Vital Signs: Temp Pulse Resp BP Pulse Ox 98.1 F 102 H 18 180/92 H 99 01/17/17 18:21 01/17/17 18:21 01/17/17 18:21 01/17/17 18:21 01/17/17 18:21 General appearance: PRESENT: no acute distress, cooperative, disheveled, well- developed, well-nourished Head exam: PRESENT: atraumatic, normocephalic Eye exam: PRESENT: conjunctiva pink, EOMI, PERRLA. ABSENT: scleral icterus Ear exam: PRESENT: normal external ear exam Mouth exam: PRESENT: moist, tongue midline Neck exam: ABSENT: carotid bruit, JVD, lymphadenopathy, thyromegaly Respiratory exam: PRESENT: clear to auscultation molina. ABSENT: rales, rhonchi, wheezes Cardiovascular exam: PRESENT: RRR. ABSENT: diastolic murmur, rubs, systolic murmur Pulses: PRESENT: normal dorsalis pedis pul, +1 pedal pulses bilateral Vascular exam: PRESENT: normal capillary refill GI/Abdominal exam: PRESENT: normal bowel sounds, soft. ABSENT: distended, guarding, mass, organolmegaly, rebound, tenderness Rectal exam: PRESENT: deferred Extremities exam: PRESENT: full ROM, other - Stocking glove numbness, chronic changes of vascular insufficiency with evidence of recent healed ulcerations. ABSENT: calf tenderness, clubbing, pedal edema Neurological exam: PRESENT: alert, awake, oriented to person, oriented to place , oriented to time, oriented to situation, CN II-XII grossly intact. ABSENT: motor sensory deficit Psychiatric exam: PRESENT: anxious, depressed Skin exam: PRESENT: dry, intact, warm, other - Chronic changes of venous insufficiency of the lower extremity. ABSENT: cyanosis, rash Results Impressions: Femur X-Ray 01/17/17 20:52 IMPRESSION: NO RADIOGRAPHIC EVIDENCE OF ACUTE INJURY. Assessment & Plan - Diagnosis (1) End stage renal failure on dialysis Is this a current diagnosis for this admission?: YesPlan: Avoid volume overload, mild hyperkalemia I'll initiate lactulose and reevaluation with nephrology consultation (2) Upper GI bleed Is this a current diagnosis for this admission?: YesPlan: Nothing by mouth, IV Protonix and GI consultation (3) Diabetes mellitus Qualifiers: Diabetes mellitus type: type 1 Is this a current diagnosis for this admission?: YesPlan: Sliding scale insulin and a half dose of his regular long-acting while nothing by mouth (4) Hypertension Is this a current diagnosis for this admission?: YesPlan: Initiate home regiment with when necessary hydralazine (5) Anemia requiring transfusions Is this a current diagnosis for this admission?: YesPlan: Obtain anemia workup, consider transfusion of pack red blood cells if follow-up hemoglobin is trending down - Time Time Spent: 50 to 70 Minutes - Inpatient Certification Medical Necessity: Need Close Monitoring Due to Risk of Patient Decompensation
[2017-01-18] MEDS: CLONIDINE HCL 0.1 MG TABLET PO SCH ×3 (01:40→21:39)
[2017-01-18 02:41] LABS: FOLATE 8.41 ng/mL (>2.76)
[2017-01-18] MEDS: MORPHINE SULFATE 10 MG/ML INJ IV PRN ×2 (03:45→21:59)
[2017-01-18] MEDS ORDERED: HEPARIN SOD (PORCINE) 5,000 UNIT/ML 1 ML SYRINGE SUBCUT SCH (06:00)
[2017-01-18] MEDS ORDERED: METRONIDAZOLE 250 MG TABLET PO SCH (07:00)
[2017-01-18 07:24] LABS: BLOOD UREA NITROGEN 115 mg/dL (7-20); CARBON DIOXIDE 20 mmol/L (22-30); CHLORIDE 97 mmol/L (98-107); GLUCOSE 107 mg/dL (75-110); POTASSIUM 5.5 mmol/L (3.6-5.0); SODIUM 142.4 mmol/L (137-145)
[2017-01-18 07:33] LABS: CREATININE RESULT 15.77 mg/dL (0.52-1.25)
[2017-01-18 07:34] LABS: ANION GAP 25 (5-19)
[2017-01-18] MEDS ORDERED: EPOETIN ALFA INJ 20000 UNIT/1 ML VIAL (RENAL) IV PRN (09:00)
[2017-01-18 09:43] LABS: ABSOLUTE BASOPHILS # (AUTO) 0.1 10^3/uL (0.0-0.2); ABSOLUTE EOSINOPHILS # (AUTO) 0.1 10^3/uL (0.0-0.6); ABSOLUTE LYMPHOCYTES (AUTO) 0.8 10^3/uL (0.5-4.7); ABSOLUTE MONOCYTES (AUTO) 0.4 10^3/uL (0.1-1.4); ABSOLUTE NEUT (AUTO) 6.2 10^3/uL (1.7-8.2); EOSINOPHILS % (AUTO) 1.7 % (0-6); HEMATOCRIT 19.2 % (37.9-51.0); HGB HCT DIFFERENCE -0.6; LYMPHOCYTES % (AUTO) 10.1 % (13-45); MEAN CORPUSCULAR HEMOGLOBIN 29.2 pg (27.0-33.4); MEAN CORPUSCULAR HGB CONC 32.1 g/dL (32.0-36.0); MEAN CORPUSCULAR VOLUME 91 fl (80-97); MONOCYTES % (AUTO) 5.1 % (3-13); RED BLOOD COUNT 2.11 10^6/uL (4.35-5.55); SEGMENTED NEUTROPHILS % (AUTO) 82.1 % (42-78); WHITE BLOOD COUNT 7.5 10^3/uL (4.0-10.5)
[2017-01-18 09:55] LABS: HEMOGLOBIN 6.2 g/dL (13.5-17.0)
[2017-01-18] MEDS ORDERED: METOPROLOL SUCCINATE 50 MG TAB.SR.24H PO SCH ×2 (10:00→22:00)
[2017-01-18] MEDS ORDERED: IPRATROPIUM/ALBUTEROL 0.5-2.5 MG/3 ML AMPUL NEB SCH (10:00)
[2017-01-18] MEDS: FLUTICASONE NASAL SPRAY 50 MCG/SPRY 120 SPRAY/16 GM NASL SCH ×2 (10:24→21:58)
[2017-01-18] MEDS: SEVELAMER HCL 400 MG TABLET PO SCH ×3 (10:24→18:04)
--- NOTE | 2017-01-18 11:14 | PDOC CONSULTATION ---
Consultation Consult Date: 01/18/17 Attending physician:: ELIAZAR JIANG Consult reason:: Chronic anemia. recent unremarkable colonoscopy with no signs of over bleeding. prep was suspect. patient had colonoscopy done by Dr Kohli with almost similar prep, no findings noted at that time also. ? upper GI bleeding, ? AVM's History of Present Illness Admission Date/PCP: 01/18/17 00:24 SARAHI YEUNG DO History of Present Illness: patient was admitted from the ED patient undergoes chronic dialysis and present with decreased H/H I had seem him in Nov, he underwent a colonoscopy prep was not as good, but no signs of overt bleeding could be detected patient was seen in follow up he does say that his stools are dark did not have an EGD at that time getting dialysis now, also receiving some PRBC transfusion will need EGD to rule out for possible AVM bleed Past Medical History Cardiac Medical History: Reports: Congestive Heart Failure, Hyperlipidema, Hypertension Denies: Coronary Artery Disease, DVT, Myocardial Infarction, Pulmonary Embolism Pulmonary Medical History: Reports: Asthma, Chronic Obstructive Pulmonary Disease (COPD) Denies: Bronchitis, Pneumonia, Tuberculosis Neurological Medical History: Denies: Seizures Endocrine Medical History: Reports: Diabetes Mellitus Type 2 Renal/ Medical History: Reports: End Stage Renal Disease GI Medical History: Denies: Cirrhosis, Gastroesophageal Reflux Disease, Hepatitis Musculoskeltal Medical History: Reports: Arthritis Psychiatric Medical History: Denies: Depression Hematology: Reports: Anemia Past Surgical History Past Surgical History: Reports: Appendectomy, Cholecystectomy, Orthopedic Surgery - right knee surgery, Vascular Surgery Social History Lives with: Family Smoking Status: Current Every Day Smoker Frequency of Alcohol Use: None Hx Recreational Drug Use: No Drugs: Cocaine Hx Prescription Drug Abuse: No - Advance Directive Resuscitation Status: Full Code Family History Family History: Reviewed & Not Pertinent Parental Family History Reviewed: Yes Children Family History Reviewed: Unknown Sibling(s) Family History Reviewed.: Unknown Medication/Allergy Home Medications: Albuterol Sulfate [Albuterol Sulfate 2.5mg/3 mL] 1 vial IH RTQ4HP PRN 01/18/17 Albuterol Sulfate [Proair HFA] 2 puff IH Q6HP PRN 01/18/17 Alprazolam [Xanax] 2 mg PO TIDP PRN 01/18/17 Cholestyramine/Aspartame [Questran Light 4 Gm Packet] 4 gm PO AC 01/18/17 Cinacalcet HCl [Sensipar 30 Mg Tablet] 30 mg PO WSUPPER 01/18/17 Clonidine HCl [Catapres 0.3 mg Tablet] 0.3 mg PO Q12 01/18/17 Eluxadoline [Viberzi] 75 mg PO BID 01/18/17 Furosemide [Lasix] 40 mg PO BID 01/18/17 Hydralazine HCl [Apresoline 50 mg Tablet] 50 mg PO Q12 01/18/17 Hydrocodone/Acetaminophen [[place] 5-325 mg Tablet] 1 tab PO Q6HP PRN 01/18/17 Metoprolol Succinate [Toprol XL 100 mg Tablet] 100 mg PO QHS 01/18/17 Mupirocin [Bactroban 2% Ointment 22 gm] 1 applic TP BID 01/18/17 Omeprazole 20 mg PO ACBRKFST 01/18/17 Oxycodone HCl/Acetaminophen [Percocet 10-325 Mg Tablet] 1 each PO Q4HP PRN 01/18 Sevelamer Carbonate [Renvela] 2,400 mg PO MEALS 01/18/17 Sulfamethoxazole/Trimethoprim [Septra-Ds 800-160 mg Tablet] 1 tab PO DAILY 01/18 Vit B Cmplx 3/FA/Vit C/Biotin [Swati-Anoop Rx Tablet] 1 each PO DAILY 01/18/17 Zaleplon [Sonata] 10 mg PO QHS 01/18/17 Allergies/Adverse Reactions: acetaminophen [From Tylenol] Allergy (Severe, Verified 01/17/17 18:20) iodine [Iodine] Allergy (Severe, Verified 01/17/17 18:20) swelling, itching povidone-iodine [From Betadine] Allergy (Severe, Verified 01/17/17 18:20) rash Shellfish * [Shellfish] Allergy (Severe, Verified 01/17/17 18:20) Swelling of Throat Soap [From Betadine] Allergy (Severe, Verified 01/17/17 18:20) rash Review of Systems Constitutional: ABSENT: fever(s), headache(s), night sweats, weakness Eyes: ABSENT: visual disturbances Ears: ABSENT: hearing changes Nose, Mouth, and Throat: ABSENT: mouth pain, sore throat Cardiovascular: ABSENT: chest pain, edema, orthropnea Respiratory: ABSENT: dyspnea, hemoptysis Gastrointestinal: ABSENT: diarrhea, dysphagia, hematochezia, nausea, vomiting Genitourinary: ABSENT: dysuria, hematuria Musculoskeletal: ABSENT: deformity, joint swelling Integumentary: ABSENT: lesions, pruritus Neurological: ABSENT: syncope, tremor(s), vertigo Endocrine: ABSENT: polydipsia, polyphagia, polyuria Hematologic/Lymphatic: ABSENT: easy bruising, lymphadenopathy Physical Exam Vital Signs: Temp Pulse Resp BP Pulse Ox 97.5 F 83 20 154/75 H 100 01/18/17 06:30 01/18/17 07:00 01/18/17 06:30 01/18/17 06:30 01/18/17 06:30 Intake & Output 01/17/17 01/18/17 01/19/17 06:59 06:59 06:59 Intake Total 187 Balance 187 Weight 78.2 kg General appearance: PRESENT: well-developed, well-nourished. ABSENT: no acute distress Head exam: PRESENT: atraumatic, normocephalic Eye exam: PRESENT: EOMI, PERRLA. ABSENT: nystagmus, periorbital swelling, scleral icterus Mouth exam: PRESENT: moist Throat exam: ABSENT: tonsillar exudate, tonsillogmegaly Neck exam: ABSENT: meningismus, tenderness, thyromegaly Respiratory exam: PRESENT: clear to auscultation molina, symmetrical, unlabored. ABSENT: tachypnea, wheezes Cardiovascular exam: PRESENT: RRR, +S1, +S2 GI/Abdominal exam: PRESENT: soft. ABSENT: Mao's sign, rebound, rigid, tenderness Extremities exam: ABSENT: joint swelling Neurological exam: PRESENT: oriented to time, oriented to situation, reflexes normal Psychiatric exam: PRESENT: appropriate affect Skin exam: PRESENT: normal color. ABSENT: mottled, pallor, petechiae, urticaria , vesicles Results Laboratory Results: 01/18/17 08:15 01/18/17 07:04 01/18/17 01/18/17 07:04 08:15 WBC 7.5 RBC 2.11 L Hgb 6.2 L Hct 19.2 L MCV 91 MCH 29.2 MCHC 32.1 RDW 19.0 H Plt Count 197 Seg Neutrophils % 82.1 H Lymphocytes % 10.1 L Monocytes % 5.1 Eosinophils % 1.7 Basophils % 1.0 Absolute Neutrophils 6.2 Absolute Lymphocytes 0.8 Absolute Monocytes 0.4 Absolute Eosinophils 0.1 Absolute Basophils 0.1 Sodium 142.4 Potassium 5.5 H Chloride 97 L Carbon Dioxide 20 L Anion Gap 25 H BUN 115 H Creatinine 15.77 H Est GFR ( Amer) 4 L Est GFR (Non-Af Amer) 3 L Glucose 107 Calcium 10.0 Impressions: Femur X-Ray 01/17/17 20:52 IMPRESSION: NO RADIOGRAPHIC EVIDENCE OF ACUTE INJURY. Assessment & Plan - Diagnosis (1) Anemia requiring transfusions Is this a current diagnosis for this admission?: YesPlan: recent colonoscopy is negative previous to that Dr Kohli performed a colonoscopy that was negative as well may be chronic will need EGD Risks, benefits and alternatives are explained to the patient in detail he is willing to proceed (2) Upper GI bleed Is this a current diagnosis for this admission?: YesPlan: could possibly the origin of blood loss however large volume loss will be more symptomatic could be due to AVM may need ablation will schedule EGD for tomorrow patient is willing to proceed - Time Time Spent: 50 to 70 Minutes
[2017-01-18] MEDS: IPRATROPIUM/ALBUTEROL 0.5-2.5 MG/3 ML AMPUL NEB SCH ×2 (14:02→20:51)
[2017-01-18] MEDS: METRONIDAZOLE 250 MG TABLET PO SCH ×2 (14:13→18:10)
--- NOTE | 2017-01-18 16:28 | PDOC CONSULTATION ---
Consultation Consult Date: 01/18/17 Consult reason:: Hemodialysis, anemia, C. difficile colitis. History of Present Illness Admission Date/PCP: 01/18/17 00:24 SARAHI YEUNG DO History of Present Illness: Chay Camargo is a 51 years old -[place] male with a past medical history significant for severe complicated type 1 diabetes mellitus with history of retinopathy, neuropathy, ESRD on hemodialysis with very poor compliance, with other comorbid issues including hypertension, cocaine abuse is being admitted with history of recurrent falls and some shortness of breath. Is also been having a painless diarrhea going on for the last couple of weeks. He had a C. difficile done couple of days ago and yesterday I was called with results saying that it was C. difficile positive. He has had a previous history of C. difficile colitis approximately couple of months ago and he says he took the full treatment but I have severe doubts to that because he is an extremely noncompliant patient. Patient denies history of fever chills. No history of any bloody stools nausea vomiting. He has had multiple missed treatments. He has also got poor peripheral vascular disease. Past Medical History Cardiac Medical History: Reports: Hyperlipidemia Denies: Coronary Artery Disease, DVT, Myocardial Infarction, Pulmonary Embolism Pulmonary Medical History: Reports: Asthma, Chronic Obstructive Pulmonary Disease (COPD) Denies: Bronchitis, Pneumonia, Tuberculosis Neurological Medical History: Denies: Seizures Endocrine Medical History: Reports: Diabetes Mellitus Type 2 Renal/ Medical History: Reports: End Stage Renal Disease GI Medical History: Denies: Cirrhosis, Gastroesophageal Reflux Disease, Hepatitis Musculoskeltal Medical History: Reports: Arthritis Psychiatric Medical History: Reports: Substance Abuse - With cocaine. Denies: Depression Infectious Medical History: Reports: Clostridium Difficile - He has had a history of positive C. difficile colitis approximately 2 month Hematology Medical History: Reports Anemia of Chronic Kidney Disease Past Surgical History Past Surgical History: Reports: Appendectomy, Cholecystectomy, Orthopedic Surgery - right knee surgery, Vascular Surgery Social History Lives with: Family Smoking Status: Current Every Day Smoker Frequency of Alcohol Use: None Hx Recreational Drug Use: No Drugs: Cocaine Hx Prescription Drug Abuse: No - Advance Directive Resuscitation Status: Full Code Family History Parental Family History Reviewed: Yes Children Family History Reviewed: No Sibling(s) Family History Reviewed.: No Medication/Allergy Home Medications: Albuterol Sulfate [Albuterol Sulfate 2.5mg/3 mL] 1 vial IH RTQ4HP PRN 01/18/17 Albuterol Sulfate [Proair HFA] 2 puff IH Q6HP PRN 01/18/17 Alprazolam [Xanax] 2 mg PO TIDP PRN 01/18/17 Cholestyramine/Aspartame [Questran Light 4 Gm Packet] 4 gm PO AC 01/18/17 Cinacalcet HCl [Sensipar 30 Mg Tablet] 30 mg PO WSUPPER 01/18/17 Clonidine HCl [Catapres 0.3 mg Tablet] 0.3 mg PO Q12 01/18/17 Eluxadoline [Viberzi] 75 mg PO BID 01/18/17 Furosemide [Lasix] 40 mg PO BID 01/18/17 Hydralazine HCl [Apresoline 50 mg Tablet] 50 mg PO Q12 01/18/17 Hydrocodone/Acetaminophen [[place] 5-325 mg Tablet] 1 tab PO Q6HP PRN 01/18/17 Metoprolol Succinate [Toprol XL 100 mg Tablet] 100 mg PO QHS 01/18/17 Mupirocin [Bactroban 2% Ointment 22 gm] 1 applic TP BID 01/18/17 Omeprazole 20 mg PO ACBRKFST 01/18/17 Oxycodone HCl/Acetaminophen [Percocet 10-325 Mg Tablet] 1 each PO Q4HP PRN 01/18 Sevelamer Carbonate [Renvela] 2,400 mg PO MEALS 01/18/17 Sulfamethoxazole/Trimethoprim [Septra-Ds 800-160 mg Tablet] 1 tab PO DAILY 01/18 Vit B Cmplx 3/FA/Vit C/Biotin [Swati-Anoop Rx Tablet] 1 each PO DAILY 01/18/17 Zaleplon [Sonata] 10 mg PO QHS 01/18/17 Allergies/Adverse Reactions: acetaminophen [From Tylenol] Allergy (Severe, Verified 01/17/17 18:20) iodine [Iodine] Allergy (Severe, Verified 01/17/17 18:20) swelling, itching povidone-iodine [From Betadine] Allergy (Severe, Verified 01/17/17 18:20) rash Shellfish * [Shellfish] Allergy (Severe, Verified 01/17/17 18:20) Swelling of Throat Soap [From Betadine] Allergy (Severe, Verified 01/17/17 18:20) rash Review of Systems Review of Systems: My review of system Constitutional: PRESENT: as per HPI. ABSENT: chills, fever( s), headache(s), weight gain, weight loss Eyes: ABSENT: visual disturbances Ears: ABSENT: hearing changes Cardiovascular: ABSENT: chest pain, edema, orthropnea, palpitations Respiratory: ABSENT: cough, hemoptysis Gastrointestinal: ABSENT: abdominal pain, constipation, hematemesis, hematochezia, nausea, vomiting Genitourinary: ABSENT: dysuria, hematuria Musculoskeletal: ABSENT: joint swelling Integumentary: ABSENT: rash, wounds Neurological: ABSENT: abnormal gait, abnormal speech, confusion, dizziness, focal weakness, syncope Psychiatric: ABSENT: anxiety, depression, homicidal ideation, suicidal ideation Endocrine: ABSENT: cold intolerance, heat intolerance, polydipsia, polyuria Hematologic/Lymphatic: ABSENT: easy bleeding, easy bruising, lymphadenopathy Physical Exam Vital Signs: Temp Pulse Resp BP Pulse Ox 97.9 F 81 17 151/66 H 95 01/18/17 13:10 01/18/17 14:02 01/18/17 14:02 01/18/17 13:10 01/18/17 13:10 Intake & Output 01/17/17 01/18/17 01/19/17 06:59 06:59 06:59 Intake Total 187 0 Output Total 2500 Balance 187 -2500 Weight 78.2 kg General appearance: PRESENT: no acute distress Eye exam: PRESENT: conjunctiva pink, EOMI, PERRLA. ABSENT: nystagmus, scleral icterus Ear exam: PRESENT: normal external ear exam Mouth exam: PRESENT: moist, neck supple Neck exam: ABSENT: lymphadenopathy, meningismus, tenderness, thyromegaly, tracheal deviation Respiratory exam: PRESENT: clear to auscultation molina, symmetrical. ABSENT: crackles, rhonchi Cardiovascular exam: PRESENT: +S1, +S2, systolic murmur GI/Abdominal exam: PRESENT: normal bowel sounds, soft. ABSENT: ascites, firm, guarding, organomegaly, tenderness Extremities exam: PRESENT: +1 edema Neurological exam: PRESENT: alert, awake, oriented to person, oriented to place , oriented to time Skin exam: PRESENT: mottled. ABSENT: cyanosis, erythema, rash Results Laboratory Results: 01/18/17 08:15 01/18/17 07:04 01/18/17 01/18/17 07:04 08:15 WBC 7.5 RBC 2.11 L Hgb 6.2 L Hct 19.2 L MCV 91 MCH 29.2 MCHC 32.1 RDW 19.0 H Plt Count 197 Seg Neutrophils % 82.1 H Lymphocytes % 10.1 L Monocytes % 5.1 Eosinophils % 1.7 Basophils % 1.0 Absolute Neutrophils 6.2 Absolute Lymphocytes 0.8 Absolute Monocytes 0.4 Absolute Eosinophils 0.1 Absolute Basophils 0.1 Sodium 142.4 Potassium 5.5 H Chloride 97 L Carbon Dioxide 20 L Anion Gap 25 H BUN 115 H Creatinine 15.77 H Est GFR ( Amer) 4 L Est GFR (Non-Af Amer) 3 L Glucose 107 Calcium 10.0 Impressions: Femur X-Ray 01/17/17 20:52 IMPRESSION: NO RADIOGRAPHIC EVIDENCE OF ACUTE INJURY. Assessment & Plan - Diagnosis (1) Clostridium difficile colitis Plan: Begin him on Flagyl. Monitor. (2) Anemia requiring transfusions Is this a current diagnosis for this admission?: YesPlan: Patient has been transfused and posttransfusion hemoglobin was 7 plus. However the predialysis hemoglobin was done as he had his transfusions done by them and it came back at 6.2 and is being typed and crossmatched for 2 more units as he is being referred to GI for further evaluation. He is currently hemodynamically stable (3) End stage renal failure on dialysis Is this a current diagnosis for this admission?: YesPlan: Patient seen on dialysis. He is undergoing dialysis without any issues. Orders were discussed with the treating nurse Telma. (4) Fall Qualifiers: Encounter type: initial encounter Qualified Code(s): W19.XXXA - Unspecified fall, initial encounter Plan: As per hospitalist (6) Diabetes mellitus Qualifiers: Diabetes mellitus type: type 1 Is this a current diagnosis for this admission?: YesPlan: Advised on diet controlled but patient is not a history of severe noncompliance with diet and medications and coming for dialysis treatments. These all play into each other. (7) Hyperkalemia Plan: Discussed diet. Should respond to dialysis. Monitor.
--- NOTE | 2017-01-18 17:43 | PDOC PROGRESS REPORT ---
Subjective Progress Note for:: 01/18/17 Subjective:: The patient was seen earlier today on rounds. The patient was dialyzed today. The patient did receive a unit of packed red blood cells. The patient has had no further evidence of overt bleeding. The patient denies any nausea, vomiting , diarrhea, shortness of breath, dizziness, chest pain, heart palpitations, fevers, or chills. The patient has remained afebrile. Blood pressures have been in a good range. When prompted the patient voices no other concerns at this time. Review of systems: The rest of the review of systems is negative. Physical Exam Vital Signs: Temp Pulse Resp BP Pulse Ox 97.9 F 90 16 153/79 H 98 01/18/17 17:30 01/18/17 17:30 01/18/17 17:30 01/18/17 17:30 01/18/17 17:30 Intake & Output 01/16/17 01/17/17 01/18/17 23:59 23:59 23:59 Intake Total 387 Output Total 2500 Balance -2113 Weight 78.2 kg General appearance: PRESENT: no acute distress, cooperative, well-developed, well-nourished Head exam: PRESENT: atraumatic, normocephalic Eye exam: PRESENT: conjunctiva pink, EOMI, PERRLA. ABSENT: scleral icterus Ear exam: PRESENT: normal external ear exam Mouth exam: PRESENT: moist, tongue midline Neck exam: ABSENT: carotid bruit, JVD, lymphadenopathy, thyromegaly Respiratory exam: PRESENT: clear to auscultation molina. ABSENT: rales, rhonchi, wheezes Cardiovascular exam: PRESENT: RRR. ABSENT: diastolic murmur, rubs, systolic murmur Pulses: PRESENT: normal dorsalis pedis pul Vascular exam: PRESENT: normal capillary refill GI/Abdominal exam: PRESENT: normal bowel sounds, soft. ABSENT: distended, guarding, mass, organolmegaly, rebound, tenderness Rectal exam: PRESENT: deferred Extremities exam: PRESENT: full ROM. ABSENT: calf tenderness, clubbing, pedal edema Neurological exam: PRESENT: alert, awake, oriented to person, oriented to place , oriented to time, oriented to situation, CN II-XII grossly intact. ABSENT: motor sensory deficit Psychiatric exam: PRESENT: appropriate affect, normal mood. ABSENT: homicidal ideation, suicidal ideation Skin exam: PRESENT: dry, intact, warm. ABSENT: cyanosis, rash Results Laboratory Results: 01/18/17 08:15 01/18/17 07:04 01/18/17 01/18/17 07:04 08:15 WBC 7.5 RBC 2.11 L Hgb 6.2 L Hct 19.2 L MCV 91 MCH 29.2 MCHC 32.1 RDW 19.0 H Plt Count 197 Seg Neutrophils % 82.1 H Lymphocytes % 10.1 L Monocytes % 5.1 Eosinophils % 1.7 Basophils % 1.0 Absolute Neutrophils 6.2 Absolute Lymphocytes 0.8 Absolute Monocytes 0.4 Absolute Eosinophils 0.1 Absolute Basophils 0.1 Sodium 142.4 Potassium 5.5 H Chloride 97 L Carbon Dioxide 20 L Anion Gap 25 H BUN 115 H Creatinine 15.77 H Est GFR ( Amer) 4 L Est GFR (Non-Af Amer) 3 L Glucose 107 Calcium 10.0 Impressions: Femur X-Ray 01/17/17 20:52 IMPRESSION: NO RADIOGRAPHIC EVIDENCE OF ACUTE INJURY. Assessment & Plan - Diagnosis (1) Anemia requiring transfusions Is this a current diagnosis for this admission?: YesPlan: Do appreciate GI input the patient will undergo endoscopy in a.m. The patient is intolerant and cross and is to receive 2 units of packed red blood cells. (2) End stage renal failure on dialysis Is this a current diagnosis for this admission?: YesPlan: Do appreciate Dr. Cartwright is input with this (3) Hyperkalemia Is this a current diagnosis for this admission?: YesPlan: Do appreciate nephrology input will follow. Could possibly be due to GI bleed. (4) Upper GI bleed Is this a current diagnosis for this admission?: Yes (6) Anisocoria Is this a current diagnosis for this admission?: No (7) Diabetes mellitus type 1 Qualifiers: Diabetes mellitus complication status: with unspecified complications Qualified Code(s): E10.8 - Type 1 diabetes mellitus with unspecified complications Is this a current diagnosis for this admission?: Yes (8) Hypertension Qualifiers: Hypertension type: essential hypertension Qualified Code(s): I10 - Essential (primary) hypertension Is this a current diagnosis for this admission?: YesPlan: Will continue home medications. - Time Time Spent with patient: 35 or more minutes Medications reviewed and adjusted accordingly: Yes Anticipated discharge: Home Within: within 24 hours, within 48 hours
[2017-01-18] MEDS ORDERED: ALPRAZOLAM 0.5 MG TABLET PO PRN (17:53)
--- NOTE | 2017-01-18 20:59 | OPERATIVE REPORT E ---
Operative Report NAME: NATHEN DING : 1965 AGE: 51Y DATE OF SURGERY: 01/18/2017 ROOM: 426 PREOPERATIVE DIAGNOSES: 1. Poor veins for intravenous access. 2. End-stage renal disease. 3. Gastrointestinal bleed. POSTOPERATIVE DIAGNOSES: 1. Poor veins for intravenous access. 2. End-stage renal disease. 3. Gastrointestinal bleed. OPERATION: Insertion of right internal jugular vein triple-lumen catheter under ultrasound guidance. SURGEON: LALITHA BOOTHE M.D. ANESTHESIA: Local. INDICATIONS: This is a 51-year-old male on hemodialysis and noted to have GI bleed and needed IV access. PROCEDURE: The patient was placed in supine position and the right neck exposed and prepped and draped in the usual sterile fashion. Local anesthesia infiltrated along the tract of the distal sternocleidomastoid muscle. An ultrasound was then used to identify the internal jugular vein. The internal jugular vein was subsequently punctured and guidewire inserted through the needle into the superior vena cava. The needle was removed, and the puncture site was enlarged with an 11-blade. Next, a dilator was passed over the guidewire towards the superior vena cava. The dilator removed, and a triple-lumen catheter inserted up to about 15 cm. Next, the 3 ports of the catheter were then aspirated and then injected with saline. There were easy aspirations of venous blood and this injection of saline. Next, the catheter was then anchored to the skin with 3-0 silk and anchored to the base of the triple-lumen catheter. A *------* was placed at the insertion site, and a transparent dressing was then placed over the triple-lumen catheter. The patient tolerated the procedure well. A chest x-ray will be obtained. DICTATING PHYSICIAN: LALITHA BOOTHE M.D. [id number] PHY#: [id number] 2018 ID: [id number] JOB#: [id number] ACCT: [id number] cc:LALITHA BOOTHE M.D. >
[2017-01-18] MEDS: HYDRALAZINE HCL 50 MG TABLET PO SCH (21:40)
[2017-01-18] MEDS: INSULIN GLARGINE,HUM.REC.ANLOG 1,000 UNIT/10 ML UNIT SUBCUT SCH (21:57)
[2017-01-18] MEDS ORDERED: (PENDING PHARMACY ID) (Zaleplon [Sonata] 10 MG) PO SCH (22:00)
[2017-01-18] MEDS ORDERED: (PENDING PHARMACY ID) (Clonidine Hcl [Catapres 0.3 Mg Tablet] 0.3 MG) PO SCH (22:00)
[2017-01-18] MEDS ORDERED: INSULIN GLARGINE,HUM.REC.ANLOG 1,000 UNIT/10 ML UNIT SUBCUT SCH (22:00)
[2017-01-19] MEDS: METRONIDAZOLE 250 MG TABLET PO SCH ×3 (02:36→18:43)
[2017-01-19 03:04] LABS: ABSOLUTE EOSINOPHILS # (AUTO) 0.2 10^3/uL (0.0-0.6); ABSOLUTE LYMPHOCYTES (AUTO) 0.8 10^3/uL (0.5-4.7); ABSOLUTE MONOCYTES (AUTO) 0.4 10^3/uL (0.1-1.4); ABSOLUTE NEUT (AUTO) 6.5 10^3/uL (1.7-8.2); BASOPHILS % (AUTO) 0.6 % (0-2); EOSINOPHILS % (AUTO) 2.2 % (0-6); HEMATOCRIT 23.1 % (37.9-51.0); HGB HCT DIFFERENCE -0.6; LYMPHOCYTES % (AUTO) 9.6 % (13-45); MEAN CORPUSCULAR HEMOGLOBIN 30.2 pg (27.0-33.4); MEAN CORPUSCULAR HGB CONC 32.6 g/dL (32.0-36.0); MEAN CORPUSCULAR VOLUME 93 fl (80-97); MONOCYTES % (AUTO) 5.6 % (3-13); RED BLOOD COUNT 2.49 10^6/uL (4.35-5.55); RED CELL DISTRIBUTION WIDTH 18.3 % (11.5-14.0); WHITE BLOOD COUNT 7.9 10^3/uL (4.0-10.5)
[2017-01-19 03:09] LABS: HEMOGLOBIN 7.5 g/dL (13.5-17.0)
[2017-01-19 06:18] LABS: ABSOLUTE EOSINOPHILS # (AUTO) 0.2 10^3/uL (0.0-0.6); ABSOLUTE LYMPHOCYTES (AUTO) 0.7 10^3/uL (0.5-4.7); ABSOLUTE MONOCYTES (AUTO) 0.4 10^3/uL (0.1-1.4); ABSOLUTE NEUT (AUTO) 6.4 10^3/uL (1.7-8.2); BASOPHILS % (AUTO) 0.5 % (0-2); EOSINOPHILS % (AUTO) 2.1 % (0-6); HEMATOCRIT 23.2 % (37.9-51.0); HGB HCT DIFFERENCE -0.4; LYMPHOCYTES % (AUTO) 8.9 % (13-45); MEAN CORPUSCULAR HEMOGLOBIN 30.5 pg (27.0-33.4); MEAN CORPUSCULAR HGB CONC 32.9 g/dL (32.0-36.0); MEAN CORPUSCULAR VOLUME 93 fl (80-97); MONOCYTES % (AUTO) 5.7 % (3-13); RED CELL DISTRIBUTION WIDTH 18.3 % (11.5-14.0); SEGMENTED NEUTROPHILS % (AUTO) 82.8 % (42-78); WHITE BLOOD COUNT 7.7 10^3/uL (4.0-10.5)
[2017-01-19 06:25] LABS: CARBON DIOXIDE 24 mmol/L (22-30); CREATININE RESULT 9.38 mg/dL (0.52-1.25); GLUCOSE 104 mg/dL (75-110)
[2017-01-19 06:36] LABS: CHLORIDE 98 mmol/L (98-107); HEMOGLOBIN 7.6 g/dL (13.5-17.0); SODIUM 142.5 mmol/L (137-145)
[2017-01-19 06:41] LABS: ANION GAP 21 (5-19); BLOOD UREA NITROGEN 54 mg/dL (7-20); POTASSIUM 4.1 mmol/L (3.6-5.0)
[2017-01-19] MEDS ORDERED: (PENDING PHARMACY ID) (Sevelamer Carbonate [Renvela] 2,400 MG) PO SCH (08:00)
[2017-01-19] MEDS: IPRATROPIUM/ALBUTEROL 0.5-2.5 MG/3 ML AMPUL NEB SCH ×2 (08:52→14:03)
[2017-01-19] MEDS ORDERED: (PENDING PHARMACY ID) (Vit B Cmplx 3/Fa/Vit C/Biotin [Rena-Vite Rx Tablet] 1 EACH) PO SCH (10:00)
[2017-01-19] MEDS: SEVELAMER HCL 400 MG TABLET PO SCH ×3 (11:09→18:43)
[2017-01-19] MEDS: FOLIC ACID/VITAMIN B COMP W-C CAPSULE PO SCH (11:09)
[2017-01-19] MEDS: LANSOPRAZOLE 15 MG TAB.RAP.DR PO SCH (11:09)
[2017-01-19] MEDS: HYDRALAZINE HCL 50 MG TABLET PO SCH ×2 (11:44→21:49)
[2017-01-19] MEDS: CLONIDINE HCL 0.1 MG TABLET PO SCH ×2 (11:44→21:49)
[2017-01-19] MEDS: FLUTICASONE NASAL SPRAY 50 MCG/SPRY 120 SPRAY/16 GM NASL SCH ×2 (11:45→21:50)
[2017-01-19] MEDS ORDERED: ONDANSETRON HCL INJ/PF 4 MG/2 ML SDV IV PRN (11:46)
[2017-01-19] MEDS ORDERED: EPOETIN ALFA INJ 20000 UNIT/1 ML VIAL (RENAL) IV PRN (11:51)
--- NOTE | 2017-01-19 12:14 | PDOC PROGRESS REPORT ---
Subjective Progress Note for:: 01/19/17 Subjective:: Patient was seen this morning. He is unhappy that he is n.p.o. for his endoscopy because of his drop in his hemoglobin. He says he is having some nausea and some epigastric discomfort. He thinks that is because he is hungry and has not been given anything to eat. He states his diarrhea has gotten better over the last 2 days. No history of any fever chills. No history of chest pain shortness of breath. Labs were reviewed with the patient. Physical Exam Vital Signs: Temp Pulse Resp BP Pulse Ox 98.6 F 92 20 125/69 100 01/19/17 07:46 01/19/17 08:52 01/19/17 08:52 01/19/17 07:46 01/19/17 08:52 Intake & Output 01/18/17 01/19/17 01/20/17 06:59 06:59 06:59 Intake Total 187 1700 Output Total 2500 Balance 187 -800 Weight 78.2 kg 78.5 kg General appearance: PRESENT: no acute distress Respiratory exam: PRESENT: clear to auscultation molina. ABSENT: crackles, decreased breath sounds, rhonchi Cardiovascular exam: PRESENT: +S1, +S2, systolic murmur GI/Abdominal exam: PRESENT: normal bowel sounds, soft. ABSENT: ascites, firm, guarding, organomegaly, tenderness Extremities exam: PRESENT: pedal edema Neurological exam: PRESENT: alert, awake, oriented to person, oriented to place , oriented to time Results Laboratory Results: 01/19/17 05:45 01/19/17 05:45 01/19/17 01/19/17 01/19/17 02:30 05:45 05:45 WBC 7.9 7.7 RBC 2.49 L 2.50 L Hgb 7.5 L 7.6 L Hct 23.1 L 23.2 L MCV 93 93 MCH 30.2 30.5 MCHC 32.6 32.9 RDW 18.3 H 18.3 H Plt Count 188 180 Seg Neutrophils % 82.0 H 82.8 H Lymphocytes % 9.6 L 8.9 L Monocytes % 5.6 5.7 Eosinophils % 2.2 2.1 Basophils % 0.6 0.5 Absolute Neutrophils 6.5 6.4 Absolute Lymphocytes 0.8 0.7 Absolute Monocytes 0.4 0.4 Absolute Eosinophils 0.2 0.2 Absolute Basophils 0.0 0.0 Sodium 142.5 Potassium 4.1 D Chloride 98 Carbon Dioxide 24 Anion Gap 21 H BUN 54 H D Creatinine 9.38 H Est GFR ( Amer) 7 L Est GFR (Non-Af Amer) 6 L Glucose 104 Calcium 9.0 Impressions: Femur X-Ray 01/17/17 20:52 IMPRESSION: NO RADIOGRAPHIC EVIDENCE OF ACUTE INJURY. Chest X-Ray 01/18/17 00:00 IMPRESSION: Interval improvement. Assessment & Plan - Diagnosis (1) Clostridium difficile colitis Plan: Patient currently on Flagyl as per positive serology on outpatient labs done just before his admission. (2) Anemia requiring transfusions Is this a current diagnosis for this admission?: YesPlan: As per hospitalist and Dr. Manjarrez/gastroenterology. (3) End stage renal failure on dialysis Is this a current diagnosis for this admission?: YesPlan: Orders have been placed for hemodialysis in the morning. I am off on medication for the next [address] Gerber will be covering me in my absence. (4) Fall Qualifiers: Encounter type: initial encounter Qualified Code(s): W19.XXXA - Unspecified fall, initial encounter (5) Atrial fibrillation with rapid ventricular response Plan: Controlled rate (6) Diabetes mellitus Qualifiers: Diabetes mellitus type: type 1 Is this a current diagnosis for this admission?: YesPlan: Advised on diet and tight blood sugar control (7) Hyperkalemia Is this a current diagnosis for this admission?: YesPlan: Resolved with dialysis. Discussed diet again. Discussed implications of hypertension including cardiac arrest. However all these advises and recommendations have fallen on deaf years for this gentleman which is unfortunate.
[2017-01-19] MEDS ORDERED: DIPHENHYDRAMINE HCL 50 MG/ML VIAL ONE (13:01)
[2017-01-19] MEDS ORDERED: NALOXONE HCL INJ/PF 0.4 MG/1 ML SDV ONE (13:01)
[2017-01-19] MEDS ORDERED: ONDANSETRON HCL INJ/PF 4 MG/2 ML SDV ONE (13:01)
[2017-01-19] MEDS ORDERED: MIDAZOLAM 2 MG/2 ML INJ ONE ×2 (13:01→13:02)
[2017-01-19] MEDS ORDERED: GLUCAGON,HUMAN RECOMB 1 MG INJ ONE (13:02)
[2017-01-19] MEDS ORDERED: EPINEPHRINE INJ 1 MG/10 ML DISP.SYRIN ONE (13:02)
[2017-01-19] MEDS ORDERED: FENTANYL CITRATE INJ/PF 100 MCG/2 ML AMPUL ONE (13:02)
--- NOTE | 2017-01-19 13:50 | Operative Report ---
Operative Report DATE OF SURGERY: 01/19/17 Operative Report: The risks benefits and alternatives of the procedure explained to the patient in detail and informed consent is obtained that GIF Olympus video scope was inserted into the patient's mouth and hypopharynx the esophagus is identified intubated and insufflated the scope was then advanced through the esophagus stomach and duodenum retroflexion maneuver is done the esophagus stomach and first and second portions of the duodenum examined PREOPERATIVE DIAGNOSIS: Possible GI bleeding chronic anemia POSTOPERATIVE DIAGNOSIS: Gastritis status post biopsy. No evidence of bleeding OPERATION: EGD with biopsy SURGEON: ELIAZAR JIANG ANESTHESIA: Moderate Sedation - 2 mg of Versed. Conscious sedation monitoring time 15 minutes. TISSUE REMOVED OR ALTERED: Mucosal specimen obtained rule out Helicobacter pylori COMPLICATIONS: None. ESTIMATED BLOOD LOSS: none. INTRAOPERATIVE FINDINGS: Described above. PROCEDURE: Patient tolerated procedure well. No immediate postprocedure complications are noted. Patient is discharged in good condition. Discharge date 01/19/2017. Discharge diet: Regular. Discharge activity: Regular. 2-3 week follow-up to discuss findings. Patient is instructed to call the office should there be any further problems or questions. We'll await on biopsies.
--- NOTE | 2017-01-19 16:37 | PDOC PROGRESS REPORT ---
Subjective Progress Note for:: 01/19/17 Subjective:: The patient was seen earlier today on rounds. The patient had an essentially unremarkable EGD today. No evidence of stigmata. The patient has had no evidence of overt bleeding no melena or bright red bleeding per rectum. The patient has had no further evidence of overt bleeding. The patient denies any nausea, vomiting, diarrhea, shortness of breath, dizziness, chest pain, heart palpitations, fevers, or chills. The patient has remained afebrile. Blood pressures have been in a good range. When prompted the patient voices no other concerns at this time. Review of systems: The rest of the review of systems is negative. Physical Exam Vital Signs: Temp Pulse Resp BP Pulse Ox 98.6 F 65 12 132/72 H 92 01/19/17 07:46 01/19/17 14:10 01/19/17 14:10 01/19/17 14:10 01/19/17 14:10 Intake & Output 01/17/17 01/18/17 01/19/17 23:59 23:59 23:59 Intake Total 1237 800 Output Total 2500 Balance -1263 800 Weight 78.2 kg 78.5 kg General appearance: PRESENT: no acute distress, cooperative, well-developed, well-nourished Head exam: PRESENT: atraumatic, normocephalic Eye exam: PRESENT: conjunctiva pink, EOMI, PERRLA. ABSENT: scleral icterus Ear exam: PRESENT: normal external ear exam Mouth exam: PRESENT: moist, tongue midline Neck exam: ABSENT: carotid bruit, JVD, lymphadenopathy, thyromegaly Respiratory exam: PRESENT: clear to auscultation molina. ABSENT: rales, rhonchi, wheezes Cardiovascular exam: PRESENT: RRR. ABSENT: diastolic murmur, rubs, systolic murmur Pulses: PRESENT: normal dorsalis pedis pul Vascular exam: PRESENT: normal capillary refill GI/Abdominal exam: PRESENT: normal bowel sounds, soft. ABSENT: distended, guarding, mass, organolmegaly, rebound, tenderness Rectal exam: PRESENT: deferred Extremities exam: PRESENT: full ROM. ABSENT: calf tenderness, clubbing, pedal edema Neurological exam: PRESENT: alert, awake, oriented to person, oriented to place , oriented to time, oriented to situation, CN II-XII grossly intact. ABSENT: motor sensory deficit Psychiatric exam: PRESENT: appropriate affect, normal mood. ABSENT: homicidal ideation, suicidal ideation Skin exam: PRESENT: dry, intact, warm. ABSENT: cyanosis, rash Results Laboratory Results: 01/19/17 05:45 01/19/17 05:45 01/19/17 01/19/17 01/19/17 02:30 05:45 05:45 WBC 7.9 7.7 RBC 2.49 L 2.50 L Hgb 7.5 L 7.6 L Hct 23.1 L 23.2 L MCV 93 93 MCH 30.2 30.5 MCHC 32.6 32.9 RDW 18.3 H 18.3 H Plt Count 188 180 Seg Neutrophils % 82.0 H 82.8 H Lymphocytes % 9.6 L 8.9 L Monocytes % 5.6 5.7 Eosinophils % 2.2 2.1 Basophils % 0.6 0.5 Absolute Neutrophils 6.5 6.4 Absolute Lymphocytes 0.8 0.7 Absolute Monocytes 0.4 0.4 Absolute Eosinophils 0.2 0.2 Absolute Basophils 0.0 0.0 Sodium 142.5 Potassium 4.1 D Chloride 98 Carbon Dioxide 24 Anion Gap 21 H BUN 54 H D Creatinine 9.38 H Est GFR ( Amer) 7 L Est GFR (Non-Af Amer) 6 L Glucose 104 Calcium 9.0 Impressions: Femur X-Ray 01/17/17 20:52 IMPRESSION: NO RADIOGRAPHIC EVIDENCE OF ACUTE INJURY. Chest X-Ray 01/18/17 00:00 IMPRESSION: Interval improvement. Venous Doppler Study 01/19/17 00:00 IMPRESSION: NO EVIDENCE DVT OR SVT IN THE LEFT LEG. Assessment & Plan - Diagnosis (1) Anemia requiring transfusions Is this a current diagnosis for this admission?: YesPlan: Do appreciate GI input. The patient has been transfused. Will repeat CBC in the a.m. (2) End stage renal failure on dialysis Is this a current diagnosis for this admission?: YesPlan: Do appreciate Dr. Cartwright is input with this (3) Hyperkalemia Is this a current diagnosis for this admission?: YesPlan: Do appreciate nephrology input will follow. Could possibly be due to GI bleed. (4) Upper GI bleed Is this a current diagnosis for this admission?: Yes (5) History of CVA (cerebrovascular accident) Is this a current diagnosis for this admission?: No (6) Anisocoria Is this a current diagnosis for this admission?: No (7) Diabetes mellitus type 1 Qualifiers: Diabetes mellitus complication status: with unspecified complications Qualified Code(s): E10.8 - Type 1 diabetes mellitus with unspecified complications Is this a current diagnosis for this admission?: YesPlan: Will continue home medications. (8) Hypertension Qualifiers: Hypertension type: essential hypertension Qualified Code(s): I10 - Essential (primary) hypertension Is this a current diagnosis for this admission?: YesPlan: Will continue home medications. Hold beta blockers given cocaine use. - Time Time Spent with patient: 25-34 minutes Medications reviewed and adjusted accordingly: Yes Anticipated discharge: SNF Within: when bed available Disposition: The patient is a DO NOT RESUSCITATE DO NOT INTUBATE. Pending patient's symptomatology and diagnostic findings will reevaluate as needed.
[2017-01-19] MEDS: MORPHINE SULFATE 10 MG/ML INJ IV PRN (18:43)
[2017-01-19] MEDS: CINACALCET HCL 30 MG TABLET PO SCH (18:43)
[2017-01-19] MEDS: ZOLPIDEM TARTRATE 5 MG TABLET PO SCH (21:50)
[2017-01-19] MEDS: INSULIN GLARGINE,HUM.REC.ANLOG 1,000 UNIT/10 ML UNIT SUBCUT SCH (21:50)
[2017-01-20] MEDS: METRONIDAZOLE 250 MG TABLET PO SCH ×3 (02:15→18:04)
[2017-01-20] MEDS ORDERED: EPOETIN ALFA INJ 20000 UNIT/1 ML VIAL (RENAL) IV PRN (05:00)
[2017-01-20 06:12] LABS: HEMATOCRIT 23.3 % (37.9-51.0); HGB HCT DIFFERENCE -0.2; MEAN CORPUSCULAR HEMOGLOBIN 30.4 pg (27.0-33.4); MEAN CORPUSCULAR VOLUME 92 fl (80-97); RED BLOOD COUNT 2.52 10^6/uL (4.35-5.55); RED CELL DISTRIBUTION WIDTH 18.6 % (11.5-14.0); WHITE BLOOD COUNT 8.4 10^3/uL (4.0-10.5)
[2017-01-20 06:14] LABS: HEMOGLOBIN 7.7 g/dL (13.5-17.0)
[2017-01-20 06:25] LABS: ANION GAP 19 (5-19); BLOOD UREA NITROGEN 66 mg/dL (7-20); CALCIUM 8.3 mg/dL (8.4-10.2); CARBON DIOXIDE 24 mmol/L (22-30); CHLORIDE 98 mmol/L (98-107); CREATININE RESULT 10.68 mg/dL (0.52-1.25); GLUCOSE 136 mg/dL (75-110); POTASSIUM 4.2 mmol/L (3.6-5.0); SODIUM 141.2 mmol/L (137-145)
[2017-01-20] MEDS: SEVELAMER HCL 400 MG TABLET PO SCH ×3 (10:57→18:03)
[2017-01-20] MEDS: LANSOPRAZOLE 15 MG TAB.RAP.DR PO SCH (10:57)
[2017-01-20] MEDS: FOLIC ACID/VITAMIN B COMP W-C CAPSULE PO SCH (11:03)
[2017-01-20] MEDS: FLUTICASONE NASAL SPRAY 50 MCG/SPRY 120 SPRAY/16 GM NASL SCH (11:03)
--- NOTE | 2017-01-20 12:15 | PDOC PROGRESS REPORT ---
Subjective Progress Note for:: 01/20/17 Subjective:: Patient underwent upper endoscopy yesterday and tolerated well. No evidence of acute clinical bleeding. At colonoscopy 2-3 weeks earlier and was normal also. He continues to have chronic anemia. Question of whether he will need a small bowel study. He denies any blood in his stools. Denies any chest pain or shortness of breath. Physical Exam Vital Signs: Temp Pulse Resp BP Pulse Ox 97.3 F 79 16 148/89 H 100 01/20/17 03:50 01/20/17 03:50 01/20/17 03:50 01/20/17 03:50 01/20/17 03:50 Intake & Output 01/19/17 01/20/17 01/21/17 06:59 06:59 06:59 Intake Total 1700 870 Output Total 2500 0 Balance -800 870 Weight 78.5 kg 80 kg General appearance: PRESENT: no acute distress Head exam: PRESENT: atraumatic, normocephalic Eye exam: PRESENT: EOMI, PERRLA. ABSENT: nystagmus, periorbital swelling, scleral icterus Mouth exam: PRESENT: moist Throat exam: ABSENT: tonsillar exudate, tonsillogmegaly Neck exam: ABSENT: meningismus, tenderness, thyromegaly Respiratory exam: PRESENT: clear to auscultation molina, symmetrical, unlabored. ABSENT: wheezes Cardiovascular exam: PRESENT: RRR, +S1, +S2 GI/Abdominal exam: PRESENT: diminished bowel sounds, soft. ABSENT: Mao's sign, rebound, rigid, tenderness Extremities exam: ABSENT: joint swelling Musculoskeletal exam: PRESENT: full ROM Neurological exam: PRESENT: oriented to time, oriented to situation, reflexes normal, CN II-XII grossly intact Skin exam: PRESENT: normal color. ABSENT: mottled, pallor, petechiae, urticaria , vesicles Results Laboratory Results: 01/20/17 05:45 01/20/17 05:45 01/20/17 01/20/17 05:45 05:45 WBC 8.4 RBC 2.52 L Hgb 7.7 L Hct 23.3 L MCV 92 MCH 30.4 MCHC 33.0 RDW 18.6 H Plt Count 168 Sodium 141.2 Potassium 4.2 Chloride 98 Carbon Dioxide 24 Anion Gap 19 BUN 66 H Creatinine 10.68 H Est GFR ( Amer) 6 L Est GFR (Non-Af Amer) 5 L Glucose 136 H Calcium 8.3 L Impressions: Femur X-Ray 01/17/17 20:52 IMPRESSION: NO RADIOGRAPHIC EVIDENCE OF ACUTE INJURY. Chest X-Ray 01/18/17 00:00 IMPRESSION: Interval improvement. Venous Doppler Study 01/19/17 00:00 IMPRESSION: NO EVIDENCE DVT OR SVT IN THE LEFT LEG. Assessment & Plan - Diagnosis (1) Anemia requiring transfusions Is this a current diagnosis for this admission?: YesPlan: May be due to chronic causes. I have not been able to find GI bleeding unless it is in the small bowel. We'll continue to follow. Did have polyps removed on his colonoscopy that was negative. (2) Upper GI bleed Is this a current diagnosis for this admission?: Yes - Time Time Spent with patient: 15-24 minutes
--- NOTE | 2017-01-20 12:38 | PDOC PROGRESS REPORT ---
Subjective Progress Note for:: 01/20/17 Subjective:: The patient was seen earlier today on rounds while in dialysis. The patient had an essentially unremarkable EGD yesterday. Normal colonoscopy 2 weeks ago. No evidence of stigmata. The patient has had no evidence of overt bleeding no melena or bright red bleeding per rectum. The patient has had no further evidence of overt bleeding. The patient denies any nausea, vomiting, diarrhea, shortness of breath, dizziness, chest pain, heart palpitations, fevers, or chills. The patient has remained afebrile. Blood pressures have been in a good range. When prompted the patient voices no other concerns at this time. Review of systems: The rest of the review of systems is negative. Physical Exam Vital Signs: Temp Pulse Resp BP Pulse Ox 97.3 F 79 16 148/89 H 100 01/20/17 03:50 01/20/17 03:50 01/20/17 03:50 01/20/17 03:50 01/20/17 03:50 Intake & Output 01/18/17 01/19/17 01/20/17 23:59 23:59 23:59 Intake Total 1237 1340 180 Output Total 2500 0 0 Balance -1263 1340 180 Weight 78.2 kg 78.5 kg 80 kg General appearance: PRESENT: no acute distress, cooperative, well-developed, well-nourished Head exam: PRESENT: atraumatic, normocephalic Eye exam: PRESENT: conjunctiva pink, EOMI, PERRLA. ABSENT: scleral icterus Ear exam: PRESENT: normal external ear exam Mouth exam: PRESENT: moist, tongue midline Neck exam: ABSENT: carotid bruit, JVD, lymphadenopathy, thyromegaly Respiratory exam: PRESENT: clear to auscultation molina. ABSENT: rales, rhonchi, wheezes Cardiovascular exam: PRESENT: RRR. ABSENT: diastolic murmur, rubs, systolic murmur Pulses: PRESENT: normal dorsalis pedis pul Vascular exam: PRESENT: normal capillary refill GI/Abdominal exam: PRESENT: normal bowel sounds, soft. ABSENT: distended, guarding, mass, organolmegaly, rebound, tenderness Rectal exam: PRESENT: deferred Extremities exam: PRESENT: full ROM. ABSENT: calf tenderness, clubbing, pedal edema Neurological exam: PRESENT: alert, awake, oriented to person, oriented to place , oriented to time, oriented to situation, CN II-XII grossly intact. ABSENT: motor sensory deficit Psychiatric exam: PRESENT: appropriate affect, normal mood. ABSENT: homicidal ideation, suicidal ideation Skin exam: PRESENT: dry, intact, warm. ABSENT: cyanosis, rash Results Laboratory Results: 01/20/17 05:45 01/20/17 05:45 01/20/17 01/20/17 05:45 05:45 WBC 8.4 RBC 2.52 L Hgb 7.7 L Hct 23.3 L MCV 92 MCH 30.4 MCHC 33.0 RDW 18.6 H Plt Count 168 Sodium 141.2 Potassium 4.2 Chloride 98 Carbon Dioxide 24 Anion Gap 19 BUN 66 H Creatinine 10.68 H Est GFR ( Amer) 6 L Est GFR (Non-Af Amer) 5 L Glucose 136 H Calcium 8.3 L Impressions: Femur X-Ray 01/17/17 20:52 IMPRESSION: NO RADIOGRAPHIC EVIDENCE OF ACUTE INJURY. Chest X-Ray 01/18/17 00:00 IMPRESSION: Interval improvement. Venous Doppler Study 01/19/17 00:00 IMPRESSION: NO EVIDENCE DVT OR SVT IN THE LEFT LEG. Assessment & Plan - Diagnosis (1) Anemia requiring transfusions Is this a current diagnosis for this admission?: YesPlan: GI evaluation including upper and lower endoscopic is a been unremarkable. Possible small bowel bleed. Will repeat hemoglobin in the a.m. Of course anemia of chronic disease is contributory. (2) End stage renal failure on dialysis Is this a current diagnosis for this admission?: YesPlan: Do appreciate Dr. Cartwright is input with this (3) Hyperkalemia Is this a current diagnosis for this admission?: YesPlan: Improved. Do appreciate nephrology input will follow. Could possibly be due to GI bleed. (4) Diabetes mellitus type 1 Qualifiers: Diabetes mellitus complication status: with unspecified complications Qualified Code(s): E10.8 - Type 1 diabetes mellitus with unspecified complications Is this a current diagnosis for this admission?: YesPlan: Will continue home medications. (5) Hypertension Qualifiers: Hypertension type: essential hypertension Qualified Code(s): I10 - Essential (primary) hypertension Is this a current diagnosis for this admission?: YesPlan: Will continue home medications. Hold beta blockers given cocaine use. (6) History of CVA (cerebrovascular accident) Is this a current diagnosis for this admission?: No (7) Anisocoria Is this a current diagnosis for this admission?: No - Time Time Spent with patient: 25-34 minutes Medications reviewed and adjusted accordingly: Yes Anticipated discharge: SNF Within: when bed available Disposition: THE PATIENT HAS A BED OFFER AT [facility] WILL BE ABLE TO DISCHARGE TO ON MONDAY
[2017-01-20] MEDS: HYDRALAZINE HCL 50 MG TABLET PO SCH (17:20)
[2017-01-20] MEDS: CLONIDINE HCL 0.1 MG TABLET PO SCH ×2 (17:20→22:52)
[2017-01-20] MEDS: MORPHINE SULFATE 10 MG/ML INJ IV PRN (18:03)
[2017-01-20] MEDS: CINACALCET HCL 30 MG TABLET PO SCH (18:04)
--- NOTE | 2017-01-20 19:45 | PDOC PROGRESS REPORT ---
Subjective Progress Note for:: 01/20/17 Subjective:: I saw the patient during initiation of dialysis this morning at around 8:30 AM. Patient did not verbalize any complaints he said he was doing fine. He tolerated dialysis without any problems or complaints. He did undergo EGD without any source of active bleeding. Currently there is no evidence of active bleeding as well. Physical Exam Vital Signs: Temp Pulse Resp BP Pulse Ox 97.3 F 73 16 148/89 H 100 01/20/17 03:50 01/20/17 14:00 01/20/17 03:50 01/20/17 03:50 01/20/17 03:50 Intake & Output 01/19/17 01/20/17 01/21/17 06:59 06:59 06:59 Intake Total 1700 870 Output Total 2500 0 2000 Balance -800 870 -2000 Weight 78.5 kg 80 kg Vital signs during dialysis treatment this morning: Blood pressure 140/77, heart rate 57, blood flow rate 350 mL per minute, dialysate flow rate of 800 mL per minute. Exam: General appearance: PRESENT: no acute distress, cooperative, well-developed, well-nourished Head exam: PRESENT: atraumatic, normocephalic Eye exam: PRESENT: conjunctiva pale, PERRLA. ABSENT: scleral icterus Neck exam: ABSENT: JVD Respiratory exam: PRESENT: Diminished breath sounds. ABSENT: crackles, rales, rhonchi, unlabored, wheezes Cardiovascular exam: PRESENT: Irregularly irregular rate rhythm -+S1, +S2. ABSENT: diastolic murmur, systolic murmur GI/Abdominal exam: PRESENT: normal bowel sounds, soft. ABSENT: guarding, mass, tenderness Extremities exam: ABSENT: No edema Neurological exam: PRESENT: alert, awake, oriented to person, place and time. Skin exam: PRESENT: dry, warm, Cardiovascular exam: PRESENT: +S1, +S2, systolic murmur GI/Abdominal exam: PRESENT: normal bowel sounds, soft. ABSENT: ascites, firm, guarding, organomegaly, tenderness Results Laboratory Results: 01/20/17 05:45 01/20/17 05:45 01/20/17 01/20/17 05:45 05:45 WBC 8.4 RBC 2.52 L Hgb 7.7 L Hct 23.3 L MCV 92 MCH 30.4 MCHC 33.0 RDW 18.6 H Plt Count 168 Sodium 141.2 Potassium 4.2 Chloride 98 Carbon Dioxide 24 Anion Gap 19 BUN 66 H Creatinine 10.68 H Est GFR ( Amer) 6 L Est GFR (Non-Af Amer) 5 L Glucose 136 H Calcium 8.3 L Impressions: Femur X-Ray 01/17/17 20:52 IMPRESSION: NO RADIOGRAPHIC EVIDENCE OF ACUTE INJURY. Chest X-Ray 01/18/17 00:00 IMPRESSION: Interval improvement. Venous Doppler Study 01/19/17 00:00 IMPRESSION: NO EVIDENCE DVT OR SVT IN THE LEFT LEG. Assessment & Plan - Diagnosis (1) End stage renal failure on dialysis Is this a current diagnosis for this admission?: YesPlan: We did dialysis today for 3 hours, using the patient's AV fistula, with 2 potassium bath, blood flow rate of 350 mL per minute, dialysate flow rate of 800 mL per minute, ultrafiltration as tolerated, no heparin and Procrit with 20, 000 units during dialysis intravenously. Patient tolerated dialysis. (2) Anemia requiring transfusions Is this a current diagnosis for this admission?: YesPlan: Status post EGD. We will give Procrit when necessary. (3) C. difficile colitis Is this a current diagnosis for this admission?: YesPlan: On Flagyl. (4) Diabetes mellitus type 1 Qualifiers: Diabetes mellitus complication status: with unspecified complications Qualified Code(s): E10.8 - Type 1 diabetes mellitus with unspecified complications Is this a current diagnosis for this admission?: Yes (5) Hypertension Qualifiers: Hypertension type: essential hypertension Qualified Code(s): I10 - Essential (primary) hypertension Is this a current diagnosis for this admission?: Yes - Time Time with patient: 15-25 minutes
[2017-01-20] MEDS: ZOLPIDEM TARTRATE 5 MG TABLET PO SCH (22:52)
[2017-01-21] MEDS: FLUTICASONE NASAL SPRAY 50 MCG/SPRY 120 SPRAY/16 GM NASL SCH ×2 (00:08→09:57)
[2017-01-21] MEDS: INSULIN GLARGINE,HUM.REC.ANLOG 1,000 UNIT/10 ML UNIT SUBCUT SCH ×2 (00:08→22:32)
[2017-01-21] MEDS: MORPHINE SULFATE 10 MG/ML INJ IV PRN ×3 (00:59→18:26)
[2017-01-21] MEDS: METRONIDAZOLE 250 MG TABLET PO SCH ×3 (02:32→17:14)
[2017-01-21] MEDS: HYDRALAZINE HCL 50 MG TABLET PO SCH ×3 (02:36→22:24)
[2017-01-21 06:50] LABS: HEMATOCRIT 25.1 % (37.9-51.0); HEMOGLOBIN 8.1 g/dL (13.5-17.0); HGB HCT DIFFERENCE -0.8; MEAN CORPUSCULAR HEMOGLOBIN 29.9 pg (27.0-33.4); MEAN CORPUSCULAR HGB CONC 32.2 g/dL (32.0-36.0); MEAN CORPUSCULAR VOLUME 93 fl (80-97); RED CELL DISTRIBUTION WIDTH 19.4 % (11.5-14.0)
[2017-01-21 07:02] LABS: ANION GAP 18 (5-19); BLOOD UREA NITROGEN 35 mg/dL (7-20); CALCIUM 7.9 mg/dL (8.4-10.2); CARBON DIOXIDE 27 mmol/L (22-30); CHLORIDE 97 mmol/L (98-107); CREATININE RESULT 6.73 mg/dL (0.52-1.25); GLUCOSE 105 mg/dL (75-110); MAGNESIUM 1.6 mg/dL (1.6-2.3); POTASSIUM 3.6 mmol/L (3.6-5.0); SODIUM 141.8 mmol/L (137-145)
[2017-01-21] MEDS: FOLIC ACID/VITAMIN B COMP W-C CAPSULE PO SCH (09:56)
[2017-01-21] MEDS: SEVELAMER HCL 400 MG TABLET PO SCH ×3 (09:56→18:25)
[2017-01-21] MEDS: CLONIDINE HCL 0.1 MG TABLET PO SCH ×2 (09:57→22:23)
[2017-01-21] MEDS: LANSOPRAZOLE 15 MG TAB.RAP.DR PO SCH (09:57)
--- NOTE | 2017-01-21 14:46 | PDOC PROGRESS REPORT ---
Subjective Progress Note for:: 01/21/17 Subjective:: Patient is seen on morning rounds. He is resting comfortably in bed. He denies any shortness of breath, chest pain or dyspnea. He denies any palpitations. He denies any nausea, vomiting or abdominal pain. He denies any arthralgias or myalgias. Remainder of review of systems is negative Physical Exam Vital Signs: Temp Pulse Resp BP Pulse Ox 97.8 F 66 16 105/54 L 88 L 01/21/17 13:00 01/21/17 13:00 01/21/17 13:00 01/21/17 13:00 01/21/17 13:00 Intake & Output 01/20/17 01/21/17 01/22/17 06:59 06:59 06:59 Intake Total 870 240 Output Total 0 2000 Balance 870 -1760 Weight 80 kg 78.4 kg General appearance: PRESENT: no acute distress, well-developed, well-nourished Head exam: PRESENT: atraumatic, normocephalic Eye exam: PRESENT: conjunctiva pink, EOMI, PERRLA. ABSENT: scleral icterus Ear exam: PRESENT: normal external ear exam Mouth exam: PRESENT: moist, tongue midline Neck exam: ABSENT: carotid bruit, JVD, lymphadenopathy, thyromegaly Respiratory exam: PRESENT: clear to auscultation molina. ABSENT: rales, rhonchi, wheezes Cardiovascular exam: PRESENT: RRR. ABSENT: diastolic murmur, rubs, systolic murmur Pulses: PRESENT: normal dorsalis pedis pul Vascular exam: PRESENT: normal capillary refill GI/Abdominal exam: PRESENT: normal bowel sounds, soft. ABSENT: distended, guarding, mass, organolmegaly, rebound, tenderness Rectal exam: PRESENT: deferred Extremities exam: PRESENT: full ROM. ABSENT: calf tenderness, clubbing, pedal edema Neurological exam: PRESENT: alert, awake, oriented to person, oriented to place , oriented to time, oriented to situation, CN II-XII grossly intact. ABSENT: motor sensory deficit Psychiatric exam: PRESENT: appropriate affect, normal mood. ABSENT: homicidal ideation, suicidal ideation Skin exam: PRESENT: dry, intact, warm. ABSENT: cyanosis, rash Results Laboratory Results: 01/21/17 06:30 01/21/17 06:30 01/21/17 01/21/17 06:30 06:30 WBC 14.0 H RBC 2.70 L Hgb 8.1 L Hct 25.1 L MCV 93 MCH 29.9 MCHC 32.2 RDW 19.4 H Plt Count 162 Sodium 141.8 Potassium 3.6 Chloride 97 L Carbon Dioxide 27 Anion Gap 18 BUN 35 H Creatinine 6.73 H Est GFR ( Amer) 11 L Est GFR (Non-Af Amer) 9 L Glucose 105 Calcium 7.9 L Magnesium 1.6 Impressions: Femur X-Ray 01/17/17 20:52 IMPRESSION: NO RADIOGRAPHIC EVIDENCE OF ACUTE INJURY. Chest X-Ray 01/18/17 00:00 IMPRESSION: Interval improvement. Venous Doppler Study 01/19/17 00:00 IMPRESSION: NO EVIDENCE DVT OR SVT IN THE LEFT LEG. Assessment & Plan - Diagnosis (1) End stage renal failure on dialysis Is this a current diagnosis for this admission?: YesPlan: On dialysis with nephrology pending (2) Anemia requiring transfusions Is this a current diagnosis for this admission?: YesPlan: Patient required transfusion of 2 units from chronic disease (3) C. difficile colitis Is this a current diagnosis for this admission?: YesPlan: Continue Flagyl diarrhea has ceased (4) Hyperkalemia Is this a current diagnosis for this admission?: YesPlan: Resolved with dialysis (5) Diabetes mellitus type 1 Qualifiers: Diabetes mellitus complication status: with unspecified complications Qualified Code(s): E10.8 - Type 1 diabetes mellitus with unspecified complications Is this a current diagnosis for this admission?: YesPlan: Continue insulin therapy (6) Hypertension Qualifiers: Hypertension type: essential hypertension Qualified Code(s): I10 - Essential (primary) hypertension Is this a current diagnosis for this admission?: YesPlan: Continue antihypertensives patient specifically normotensive (7) History of CVA (cerebrovascular accident) Is this a current diagnosis for this admission?: NoPlan: No residual deficits. - Time Time Spent with patient: 25-34 minutes Critical Time spent with patient: 15-24 minutes Medications reviewed and adjusted accordingly: Yes Anticipated discharge: Acute Rehab Within: when bed available
[2017-01-21] MEDS: CINACALCET HCL 30 MG TABLET PO SCH (17:14)
--- NOTE | 2017-01-21 21:21 | EKG REPORT ---
SEVERITY:- ABNORMAL ECG - SINUS RHYTHM SINUS PAUSE/ARREST WITH ATRIAL ESCAPE FIRST DEGREE AV BLOCK LEFT ATRIAL ABNORMALITY PROLONGED QT INTERVAL : Confirmed by: Bryan Wood MD 21-Jan-2017 21:20:34
[2017-01-21 21:25] LABS: ANION GAP 17 (5-19); BLOOD UREA NITROGEN 42 mg/dL (7-20); CALCIUM 7.4 mg/dL (8.4-10.2); CARBON DIOXIDE 26 mmol/L (22-30); CHLORIDE 96 mmol/L (98-107); CREATINE KINASE 31 U/L (55-170); CREATININE RESULT 6.98 mg/dL (0.52-1.25); GLUCOSE 137 mg/dL (75-110); MAGNESIUM 1.6 mg/dL (1.6-2.3); PHOSPHORUS 6.1 mg/dL (2.5-4.5); POTASSIUM 3.7 mmol/L (3.6-5.0)
[2017-01-21 21:42] LABS: TROPONIN I 0.125 ng/mL
[2017-01-21] MEDS ORDERED: CALCIUM GLUCONATE 1,000 MG in DEXTROSE 5%-WATER 50 ML IV ONE (22:12)
[2017-01-21] MEDS ORDERED: MAGNESIUM SULFATE/D5W 100 ML IV SCH (22:30)
[2017-01-21] MEDS ORDERED: CALCIUM GLUCONATE 1000 MG/10 ML INJ IV PRN (22:40)
[2017-01-22] MEDS: ZOLPIDEM TARTRATE 5 MG TABLET PO SCH ×2 (00:35→23:02)
[2017-01-22] MEDS: FLUTICASONE NASAL SPRAY 50 MCG/SPRY 120 SPRAY/16 GM NASL SCH ×3 (00:35→22:02)
[2017-01-22] MEDS: MORPHINE SULFATE 10 MG/ML INJ IV PRN ×2 (02:20→21:50)
[2017-01-22] MEDS: METRONIDAZOLE 250 MG TABLET PO SCH ×3 (02:20→17:16)
[2017-01-22] MEDS ORDERED: MAGNESIUM SULFATE/D5W 1 GM/100 ML RTUPB IV SCH (02:45)
[2017-01-22 06:13] LABS: HEMATOCRIT 24.8 % (37.9-51.0); HGB HCT DIFFERENCE -1.1; MEAN CORPUSCULAR HEMOGLOBIN 29.6 pg (27.0-33.4); MEAN CORPUSCULAR HGB CONC 31.8 g/dL (32.0-36.0); MEAN CORPUSCULAR VOLUME 93 fl (80-97); RED BLOOD COUNT 2.66 10^6/uL (4.35-5.55); RED CELL DISTRIBUTION WIDTH 19.3 % (11.5-14.0); WHITE BLOOD COUNT 12.7 10^3/uL (4.0-10.5)
[2017-01-22 06:18] LABS: HEMOGLOBIN 7.9 g/dL (13.5-17.0)
[2017-01-22 06:41] LABS: CREATINE KINASE MB 0.87 ng/mL (<4.55); TROPONIN I 0.141 ng/mL
[2017-01-22] MEDS: SEVELAMER HCL 400 MG TABLET PO SCH ×3 (10:38→17:17)
[2017-01-22] MEDS: HYDRALAZINE HCL 50 MG TABLET PO SCH ×2 (10:39→21:50)
[2017-01-22] MEDS: CLONIDINE HCL 0.1 MG TABLET PO SCH ×2 (10:39→21:50)
[2017-01-22] MEDS: LANSOPRAZOLE 15 MG TAB.RAP.DR PO SCH (10:39)
[2017-01-22] MEDS: FOLIC ACID/VITAMIN B COMP W-C CAPSULE PO SCH (10:40)
--- NOTE | 2017-01-22 14:25 | PDOC PROGRESS REPORT ---
Subjective Progress Note for:: 01/22/17 Subjective:: Patient is seen on morning rounds. He is resting comfortably in bed. He denies any shortness of breath, chest pain or dyspnea. He denies any palpitations. He denies any nausea, vomiting or abdominal pain. He is complaining of back pain and generalized achiness Remainder of review of systems is negative Physical Exam Vital Signs: Temp Pulse Resp BP Pulse Ox 97.6 F 64 18 113/63 95 01/22/17 12:08 01/22/17 14:00 01/22/17 12:08 01/22/17 12:08 01/22/17 12:08 Intake & Output 01/21/17 01/22/17 01/23/17 06:59 06:59 06:59 Intake Total 240 1150 200 Output Total 2000 0 Balance -1760 1150 200 Weight 78.4 kg 78 kg General appearance: PRESENT: no acute distress, well-developed, well-nourished Head exam: PRESENT: atraumatic, normocephalic Eye exam: PRESENT: conjunctiva pink, EOMI, PERRLA. ABSENT: scleral icterus Ear exam: PRESENT: normal external ear exam Mouth exam: PRESENT: moist, tongue midline Neck exam: ABSENT: carotid bruit, JVD, lymphadenopathy, thyromegaly Respiratory exam: PRESENT: clear to auscultation molina. ABSENT: rales, rhonchi, wheezes Cardiovascular exam: PRESENT: RRR. ABSENT: diastolic murmur, rubs, systolic murmur Pulses: PRESENT: normal carotid pulses, normal radial pulses Vascular exam: PRESENT: normal capillary refill GI/Abdominal exam: PRESENT: normal bowel sounds, soft. ABSENT: distended, guarding, mass, organolmegaly, rebound, tenderness Rectal exam: PRESENT: deferred Extremities exam: PRESENT: full ROM. ABSENT: calf tenderness, clubbing, pedal edema Musculoskeletal exam: PRESENT: ambulatory Neurological exam: PRESENT: alert, awake, oriented to person, oriented to place , oriented to time, oriented to situation, CN II-XII grossly intact. ABSENT: motor sensory deficit Psychiatric exam: PRESENT: appropriate affect, normal mood. ABSENT: homicidal ideation, suicidal ideation Skin exam: PRESENT: dry, intact, warm. ABSENT: cyanosis, rash Results Laboratory Results: 01/22/17 05:54 01/21/17 20:50 01/21/17 01/22/17 20:50 05:54 WBC 12.7 H RBC 2.66 L Hgb 7.9 L Hct 24.8 L MCV 93 MCH 29.6 MCHC 31.8 L RDW 19.3 H Plt Count 155 Sodium 139.0 Potassium 3.7 Chloride 96 L Carbon Dioxide 26 Anion Gap 17 BUN 42 H Creatinine 6.98 H Est GFR ( Amer) 10 L Est GFR (Non-Af Amer) 8 L Glucose 137 H Calcium 7.4 L Phosphorus 6.1 H Magnesium 1.6 01/21/17 01/21/17 01/22/17 20:50 20:50 05:54 Creatine Kinase 31 L 35 L CK-MB (CK-2) 1.00 Troponin I 0.125 01/22/17 05:54 Creatine Kinase CK-MB (CK-2) 0.87 Troponin I 0.141 Impressions: Femur X-Ray 01/17/17 20:52 IMPRESSION: NO RADIOGRAPHIC EVIDENCE OF ACUTE INJURY. Chest X-Ray 01/18/17 00:00 IMPRESSION: Interval improvement. Venous Doppler Study 01/19/17 00:00 IMPRESSION: NO EVIDENCE DVT OR SVT IN THE LEFT LEG. Assessment & Plan - Diagnosis (1) End stage renal failure on dialysis Is this a current diagnosis for this admission?: YesPlan: On dialysis with nephrology pending (2) Anemia requiring transfusions Is this a current diagnosis for this admission?: YesPlan: Patient required transfusion of 2 units from chronic disease (3) C. difficile colitis Is this a current diagnosis for this admission?: YesPlan: Continue Flagyl diarrhea has ceased (4) Hyperkalemia Is this a current diagnosis for this admission?: YesPlan: Resolved with dialysis (5) Diabetes mellitus type 1 Qualifiers: Diabetes mellitus complication status: with unspecified complications Qualified Code(s): E10.8 - Type 1 diabetes mellitus with unspecified complications Is this a current diagnosis for this admission?: YesPlan: Continue insulin therapy (6) Hypertension Qualifiers: Hypertension type: essential hypertension Qualified Code(s): I10 - Essential (primary) hypertension Is this a current diagnosis for this admission?: YesPlan: Continue antihypertensives patient specifically normotensive (7) History of CVA (cerebrovascular accident) Is this a current diagnosis for this admission?: NoPlan: No residual deficits. - Time Time Spent with patient: 25-34 minutes Critical Time spent with patient: 15-24 minutes Medications reviewed and adjusted accordingly: Yes Anticipated discharge: Acute Rehab Within: when bed available
[2017-01-22 14:39] LABS: CREATINE KINASE MB 0.96 ng/mL (<4.55); TROPONIN I 0.148 ng/mL
[2017-01-22] MEDS: CINACALCET HCL 30 MG TABLET PO SCH (17:16)
[2017-01-22] MEDS: INSULIN GLARGINE,HUM.REC.ANLOG 1,000 UNIT/10 ML UNIT SUBCUT SCH (22:03)
[2017-01-23] MEDS: METRONIDAZOLE 250 MG TABLET PO SCH ×3 (04:23→19:40)
[2017-01-23 06:51] LABS: HEMATOCRIT 25.5 % (37.9-51.0); HEMOGLOBIN 8.2 g/dL (13.5-17.0); HGB HCT DIFFERENCE -0.9; MEAN CORPUSCULAR HEMOGLOBIN 29.8 pg (27.0-33.4); MEAN CORPUSCULAR VOLUME 93 fl (80-97); RED BLOOD COUNT 2.74 10^6/uL (4.35-5.55); RED CELL DISTRIBUTION WIDTH 19.2 % (11.5-14.0); WHITE BLOOD COUNT 14.2 10^3/uL (4.0-10.5)
[2017-01-23 07:18] LABS: BLOOD UREA NITROGEN 57 mg/dL (7-20); CALCIUM 8.2 mg/dL (8.4-10.2); CARBON DIOXIDE 25 mmol/L (22-30); CHLORIDE 94 mmol/L (98-107); GLUCOSE 162 mg/dL (75-110); MAGNESIUM 2.4 mg/dL (1.6-2.3)
[2017-01-23 07:40] LABS: SODIUM 138.9 mmol/L (137-145)
[2017-01-23 07:46] LABS: ANION GAP 20 (5-19)
[2017-01-23] MEDS: LANSOPRAZOLE 15 MG TAB.RAP.DR PO SCH (08:12)
[2017-01-23] MEDS: SEVELAMER HCL 400 MG TABLET PO SCH ×3 (08:12→20:42)
[2017-01-23] MEDS: FLUTICASONE NASAL SPRAY 50 MCG/SPRY 120 SPRAY/16 GM NASL SCH ×2 (10:13→22:42)
[2017-01-23] MEDS: CLONIDINE HCL 0.1 MG TABLET PO SCH ×2 (10:13→22:42)
[2017-01-23] MEDS: FOLIC ACID/VITAMIN B COMP W-C CAPSULE PO SCH (10:13)
[2017-01-23] MEDS: HYDRALAZINE HCL 50 MG TABLET PO SCH ×2 (10:13→22:42)
[2017-01-23] MEDS ORDERED: HYDROCODONE/ACETAMINOPHEN 5-325 MG TABLET PO PRN (10:28)
--- NOTE | 2017-01-23 13:57 | PDOC TRANSFER SUMMARY ---
<KEELY BLACKWELL - Last Filed: 01/23/17 13:57> General - Admit/Disc Date/PCP Admission Date/Primary Care Provider: 01/18/17 00:24 SARAHI YEUNG DO Discharge Date: 01/23/17 - Discharge Diagnosis (1) End stage renal failure on dialysis Is this a current diagnosis for this admission?: YesSummary: Continue dialysis three days per week (2) Anemia requiring transfusions Is this a current diagnosis for this admission?: YesSummary: Presently stable after one transfusion. He underwent EGD which was unremarkable. Has had an unremarkable recent normal colonoscopy. (3) C. difficile colitis Is this a current diagnosis for this admission?: YesSummary: Flagyl for 5 more days (4) Hyperkalemia Is this a current diagnosis for this admission?: Yes (5) Diabetes mellitus type 1 Is this a current diagnosis for this admission?: YesSummary: Continue insulin sliding scale coverage (6) Hypertension Is this a current diagnosis for this admission?: YesSummary: Continue current antihypertensives he is normotensive. (7) History of CVA (cerebrovascular accident) Is this a current diagnosis for this admission?: NoSummary: He has no residual deficit. - Additional Information Resuscitation Status: Full Code Discharge Diet: Diabetic, Other (Comments) - Dialysis Discharge Activity: Activity As Tolerated Home Medications: Albuterol Sulfate [Albuterol Sulfate 2.5mg/3 mL] 1 vial IH RTQ4HP PRN 01/18/17 Albuterol Sulfate [Proair HFA] 2 puff IH Q6HP PRN 01/18/17 Cholestyramine/Aspartame [Questran Light 4 gm Packet] 4 gm PO AC 01/18/17 Cinacalcet HCl [Sensipar 30 mg Tablet] 30 mg PO WSUPPER 01/18/17 Clonidine HCl [Catapres 0.3 mg Tablet] 0.3 mg PO Q12 01/18/17 Eluxadoline [Viberzi] 75 mg PO BID 01/18/17 Hydralazine HCl [Apresoline 50 mg Tablet] 50 mg PO Q12 01/18/17 Mupirocin [Bactroban 2% Ointment 22 gm] 1 applic TP BID 01/18/17 Omeprazole 20 mg PO [id number] 01/18/17 Vit B Cmplx 3/FA/Vit C/Biotin [Swati-Anoop Rx Tablet] 1 each PO DAILY 01/18/17 Alprazolam [Xanax 0.5 mg Tablet] 2 mg PO Q8HP PRN #15 tablet 01/23/17 Dextrose [Glutose 40% Gel 15 gm Tube] 15 gm PO PRN PRN tube 01/23/17 Dextrose [Glutose 40% Gel 15 gm Tube] 30 gm PO PRN PRN tube 01/23/17 Fluticasone Propionate [Flonase Nasal [place] 50 Mcg/[place] 16 gm] 2 spray NASL Q12 spray.pump 01/23/17 Folic Acid/Vitamin B Comp W-C [Nephrocaps Multiple Vitamin Capsule] 1 cap PO DAILY capsule 01/23/17 Hydrocodone/Acetaminophen [Crary 5-325 mg Tablet] 1 tab PO Q6HP PRN #20 tablet 01/23/17 Insulin Glargine,Hum.rec.anlog [Lantus Insulin 100 Unit/1 ml 10 ml] 78 unit SUBCUT QHS unit 01/23/17 Metronidazole [Flagyl 250 mg Tablet] 250 mg PO Q8A #15 tablet 01/23/17 Nicotine [Nicoderm 14 mg/24 Hr Transdermal Patch] 1 each TD DAILYP PRN patch.td24 01/23/17 Sevelamer HCl [Renagel 400 mg Tablet] 2,400 mg PO MEALS tablet 01/23/17 Zolpidem Tartrate [Ambien 5 mg Tablet] 5 mg PO QHS PRN #5 tablet 01/23/17 History of Present Illness Admission Date/PCP: 01/18/17 00:24 SARAHI YEUNG DO Patient complains of: Falls History of Present Illness: NATHEN DING is a 51 year old male with an extensive past medical history of end-stage renal failure on hemodialysis Monday, Monday and Monday, persistent tobacco dependence, COPD, congestive heart failure, insulin- dependent diabetes, and cocaine positive urine December 2016. In his usual state of health until approximately 3 days ago noted excessive weakness upon transfer sustaining a recent fall to his left side propping his seek evaluation emergency room where his found to have an unremarkable image to his left hip but is found to have anemia with a hemoglobin of 7.4 from a baseline of 9, with heme positive stool. Patient denies dark urine or stool admits recent unremarkable colonoscopy. Denies any recent change in medications Hospital Course Hospital Course: Patient was admitted to the hospital service on telemetry. Gastroenterology was consulted. Dr. Manjarrez saw the patient in consult. He took the patient following day for EGD which was unremarkable for any gastritis or active bleeding. Patient was noted to have left leg edema and pain. He underwent bilateral venous ultrasounds which were negative for DVT. He underwent hemodialysis with Dr. Gerber as scheduled. He was slowly able to progress his activity with physical therapy. He is quite weak and debilitated. They recommended senior living placement and rehabilitation. Discharge planning was consulted. The patient is agreement that he can no longer live independently at home. He was agreeable to senior living placement referral. He remained stable over the last 2 days. Today he has been offer from [facility]. He can transfer after he finishes hemodialysis today. Physical Exam Vital Signs: Temp Pulse Resp BP Pulse Ox 98.4 F 72 16 126/63 H 96 01/23/17 08:00 01/23/17 08:00 01/23/17 08:00 01/23/17 08:00 01/23/17 08:00 Intake & Output 01/22/17 01/23/17 01/24/17 06:59 06:59 06:59 Intake Total 1150 1255 400 Output Total 0 0 0 Balance 1150 1255 400 Weight 78 kg 77.7 kg General appearance: PRESENT: no acute distress, well-developed, well-nourished Head exam: PRESENT: atraumatic, normocephalic Eye exam: PRESENT: conjunctiva pink, EOMI, PERRLA. ABSENT: scleral icterus Ear exam: PRESENT: normal external ear exam Mouth exam: PRESENT: moist, tongue midline Teeth exam: PRESENT: poor dentation Neck exam: PRESENT: carotid bruit Respiratory exam: PRESENT: accessory muscle use Cardiovascular exam: PRESENT: bradycardia Pulses: PRESENT: normal carotid pulses, normal radial pulses GI/Abdominal exam: PRESENT: normal bowel sounds, soft. ABSENT: distended, guarding, mass, organolmegaly, rebound, tenderness Rectal exam: PRESENT: deferred Extremities exam: PRESENT: full ROM, +1 edema, other - right middle fingertip with maceration from fall. ABSENT: calf tenderness, clubbing, pedal edema Musculoskeletal exam: PRESENT: full ROM, normal inspection Neurological exam: PRESENT: alert, awake, oriented to person, oriented to place , oriented to time, oriented to situation, CN II-XII grossly intact. ABSENT: motor sensory deficit Psychiatric exam: PRESENT: flat affect Skin exam: PRESENT: abrasion, normal color, other - right middle finger. Results Laboratory Results: 01/23/17 06:00 01/23/17 06:00 01/23/17 01/23/17 06:00 06:00 WBC 14.2 H RBC 2.74 L Hgb 8.2 L Hct 25.5 L MCV 93 MCH 29.8 MCHC 32.0 RDW 19.2 H Plt Count 172 Sodium 138.9 Potassium 4.0 Chloride 94 L Carbon Dioxide 25 Anion Gap 20 H BUN 57 H Creatinine 9.20 H Est GFR ( Amer) 7 L Est GFR (Non-Af Amer) 6 L Glucose 162 H Calcium 8.2 L Magnesium 2.4 H 01/21/17 01/21/17 01/22/17 20:50 20:50 05:54 Creatine Kinase 31 L 35 L CK-MB (CK-2) 1.00 Troponin I 0.125 01/22/17 01/22/17 01/22/17 05:54 13:58 13:58 Creatine Kinase 32 L CK-MB (CK-2) 0.87 0.96 Troponin I 0.141 0.148 Impressions: Femur X-Ray 01/17/17 20:52 IMPRESSION: NO RADIOGRAPHIC EVIDENCE OF ACUTE INJURY. Chest X-Ray 01/18/17 00:00 IMPRESSION: Interval improvement. Venous Doppler Study 01/19/17 00:00 IMPRESSION: NO EVIDENCE DVT OR SVT IN THE LEFT LEG. Transfer Plan - Disposition Transfer Plan: Patient transferred to [facility] Plan Time Spent: Less than 30 Minutes <LAQUITA FERGUSON - Last Filed: 01/24/17 15:46> General - Admit/Disc Date/PCP Admission Date/Primary Care Provider: 01/18/17 00:24 SARAHI YEUNG DO - Discharge Diagnosis (1) Anemia requiring transfusions Is this a current diagnosis for this admission?: Yes (2) End stage renal failure on dialysis Is this a current diagnosis for this admission?: Yes (3) Hyperkalemia Is this a current diagnosis for this admission?: Yes (4) Diabetes mellitus type 1 Is this a current diagnosis for this admission?: Yes (5) Hypertension Is this a current diagnosis for this admission?: Yes (6) History of CVA (cerebrovascular accident) Is this a current diagnosis for this admission?: No (7) Anisocoria Is this a current diagnosis for this admission?: No History of Present Illness Admission Date/PCP: 01/18/17 00:24 SARAHI YEUNG, History of Present Illness: NATHEN DING is a 51 year old male Physical Exam Vital Signs: Temp Pulse Resp BP Pulse Ox 97 F L 82 18 139/74 H 98 01/24/17 12:00 01/24/17 12:00 01/24/17 12:00 01/24/17 12:00 01/24/17 12:00 Intake & Output 01/22/17 01/23/17 01/24/17 23:59 23:59 23:59 Intake Total 1535 1400 30 Output Total 0 2100 Balance 1535 -700 30 Weight 78 kg 77.7 kg 77.8 kg Results Laboratory Results: 01/23/17 06:00 01/23/17 06:00 01/21/17 01/21/17 01/22/17 20:50 20:50 05:54 Creatine Kinase 31 L 35 L CK-MB (CK-2) 1.00 Troponin I 0.125 01/22/17 01/22/17 01/22/17 05:54 13:58 13:58 Creatine Kinase 32 L CK-MB (CK-2) 0.87 0.96 Troponin I 0.141 0.148 Impressions: Femur X-Ray 01/17/17 20:52 IMPRESSION: NO RADIOGRAPHIC EVIDENCE OF ACUTE INJURY. Chest X-Ray 01/18/17 00:00 IMPRESSION: Interval improvement. Venous Doppler Study 01/19/17 00:00 IMPRESSION: NO EVIDENCE DVT OR SVT IN THE LEFT LEG. Hand X-Ray 01/23/17 00:00 IMPRESSION: NO RADIOGRAPHIC EVIDENCE OF ACUTE INJURY. OSTEOPENIA AND EROSIVE CHANGE ABOVE. CORRELATE WITH CLINICAL HISTORY OF INFLAMMATORY ARTHROPATHY SUCH RHEUMATOID. VASCULAR CALCIFICATIONS GREATER THAN EXPECTED FOR AGE. CORRELATE WITH CARDIOVASCULAR RISK FACTORS. Plan Discharge Plan: Follow-up with Dr. Carrasco, Vascular, within 1-2 weeks for hospital follow-up Time Spent: Greater than 30 Minutes
[2017-01-23] MEDS ORDERED: EPOETIN ALFA INJ 20000 UNIT/1 ML VIAL (RENAL) IV PRN (15:00)
[2017-01-23] MEDS: CINACALCET HCL 30 MG TABLET PO SCH (19:41)
--- NOTE | 2017-01-23 19:52 | PDOC PROGRESS REPORT ---
Subjective Progress Note for:: 01/23/17 Subjective:: I saw the patient during dialysis at around 1:40 PM this afternoon. He denies any complaints except for slight diarrhea due to C. difficile colitis. He tolerated dialysis well without any problems or complications. Physical Exam Vital Signs: Temp Pulse Resp BP Pulse Ox 98.4 F 47 L 18 124/72 95 01/23/17 12:00 01/23/17 12:00 01/23/17 12:00 01/23/17 12:00 01/23/17 12:00 Intake & Output 01/22/17 01/23/17 01/24/17 06:59 06:59 06:59 Intake Total 1150 1255 750 Output Total 0 0 2100 Balance 1150 1255 -1350 Weight 78 kg 77.7 kg Vital signs during dialysis when I saw him this afternoon, blood pressure 130/54 , heart rate 78, blood flow rate 400 mL per minute, dialysate flow rate 600 mL per minute. Exam: General appearance: PRESENT: no acute distress, cooperative, well-developed, well-nourished Head exam: PRESENT: atraumatic, normocephalic Eye exam: PRESENT: conjunctiva pale, PERRLA. ABSENT: scleral icterus Neck exam: ABSENT: JVD Respiratory exam: PRESENT: Diminished breath sounds. ABSENT: crackles, rales, rhonchi, unlabored, wheezes Cardiovascular exam: PRESENT: Irregular rate rhythm -+S1, +S2. ABSENT: diastolic murmur, systolic murmur GI/Abdominal exam: PRESENT: normal bowel sounds, soft. ABSENT: guarding, mass, tenderness Extremities exam: ABSENT: No edema Neurological exam: PRESENT: alert, awake, oriented to person, place and time. Skin exam: PRESENT: dry, warm, Results Laboratory Results: 01/23/17 06:00 01/23/17 06:00 01/23/17 01/23/17 06:00 06:00 WBC 14.2 H RBC 2.74 L Hgb 8.2 L Hct 25.5 L MCV 93 MCH 29.8 MCHC 32.0 RDW 19.2 H Plt Count 172 Sodium 138.9 Potassium 4.0 Chloride 94 L Carbon Dioxide 25 Anion Gap 20 H BUN 57 H Creatinine 9.20 H Est GFR ( Amer) 7 L Est GFR (Non-Af Amer) 6 L Glucose 162 H Calcium 8.2 L Magnesium 2.4 H 01/21/17 01/21/17 01/22/17 20:50 20:50 05:54 Creatine Kinase 31 L 35 L CK-MB (CK-2) 1.00 Troponin I 0.125 01/22/17 01/22/17 01/22/17 05:54 13:58 13:58 Creatine Kinase 32 L CK-MB (CK-2) 0.87 0.96 Troponin I 0.141 0.148 Impressions: Femur X-Ray 01/17/17 20:52 IMPRESSION: NO RADIOGRAPHIC EVIDENCE OF ACUTE INJURY. Chest X-Ray 01/18/17 00:00 IMPRESSION: Interval improvement. Venous Doppler Study 01/19/17 00:00 IMPRESSION: NO EVIDENCE DVT OR SVT IN THE LEFT LEG. Hand X-Ray 01/23/17 00:00 IMPRESSION: NO RADIOGRAPHIC EVIDENCE OF ACUTE INJURY. OSTEOPENIA AND EROSIVE CHANGE ABOVE. CORRELATE WITH CLINICAL HISTORY OF INFLAMMATORY ARTHROPATHY SUCH RHEUMATOID. VASCULAR CALCIFICATIONS GREATER THAN EXPECTED FOR AGE. CORRELATE WITH CARDIOVASCULAR RISK FACTORS. Assessment & Plan - Diagnosis (1) End stage renal failure on dialysis Is this a current diagnosis for this admission?: YesPlan: We did dialysis today for 3 hours, using the patient's AV fistula, with 3 potassium bath, blood flow rate of 450 mL per minute, dialysate flow rate of 800 mL per minute, ultrafiltration 1-2 L, no heparin and Procrit with 20,000 units during dialysis intravenously. Patient tolerated dialysis well. (2) Anemia requiring transfusions Is this a current diagnosis for this admission?: YesPlan: Status post EGD. We will give Procrit when necessary. (3) C. difficile colitis Is this a current diagnosis for this admission?: YesPlan: On Flagyl. (4) Diabetes mellitus type 1 Qualifiers: Diabetes mellitus complication status: with unspecified complications Qualified Code(s): E10.8 - Type 1 diabetes mellitus with unspecified complications Is this a current diagnosis for this admission?: Yes (5) Hypertension Qualifiers: Hypertension type: essential hypertension Qualified Code(s): I10 - Essential (primary) hypertension Is this a current diagnosis for this admission?: Yes - Time Time with patient: 15-25 minutes
--- NOTE | 2017-01-23 20:14 | CONSULTATION REPORT E ---
Consultation Report NAME: NATHEN DING : 1965 AGE: 51Y DATE: 01/23/2017 415 A TO: LALITHA BOOTHE M.D. FROM: TEJAL SAEZ M.D. Requesting Physician REASON FOR CONSULTATION: Patient with ischemic right middle finger. HISTORY OF PRESENT ILLNESS: This is a 51-year-old male who is on hemodialysis. He claimed he tripped and fell and hit a rack with his right middle finger about a week ago. About 3 days ago, he complained of more pain along the right middle finger. Around this time, he had an IV infiltrated along the right cubital area. PHYSICAL EXAMINATION: On examination, I can feel palpable brachial pulse and the right ulnar and radial artery pulses but somewhat decreased. The right middle finger is cool, and the tip just at the area of the nail bed is dusky and appears gangrenous. The other fingers are cool but primarily along the tips of the fingers. 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 PLAN: Patient will need arterial Doppler and may even need a CT angio. He will need a formal vascular evaluation. We will ask Dr. Carrasco to see him, and if not, he may need to be transferred or we can do amputation of the fingertip, but the healing may be questionable. At any rate, we will re-evaluate him tomorrow after his arterial Doppler. He claims his pains are about 9 out of 10, 10 being the worst, but he claims that he does not need any pain medications. He just had his dialysis today. I informed Dr. Saez, the hospitalist collection correspondent [facility], about the plans. DICTATING PHYSICIAN: LALITHA OBOTHE M.D. [id number] PHY#: [id number] ID: [id number] JOB#: [id number] ACCT: [id number] cc:LALITHA BOOTHE M.D. >
[2017-01-23] MEDS: ZOLPIDEM TARTRATE 5 MG TABLET PO SCH (22:42)
[2017-01-23] MEDS: INSULIN GLARGINE,HUM.REC.ANLOG 1,000 UNIT/10 ML UNIT SUBCUT SCH (22:43)
[2017-01-24] MEDS: METRONIDAZOLE 250 MG TABLET PO SCH ×3 (04:37→18:30)
[2017-01-24] MEDS: FLUTICASONE NASAL SPRAY 50 MCG/SPRY 120 SPRAY/16 GM NASL SCH (11:20)
[2017-01-24] MEDS: SEVELAMER HCL 400 MG TABLET PO SCH ×3 (11:23→18:30)
[2017-01-24] MEDS: LANSOPRAZOLE 15 MG TAB.RAP.DR PO SCH (11:23)
[2017-01-24] MEDS: FOLIC ACID/VITAMIN B COMP W-C CAPSULE PO SCH (11:23)
[2017-01-24] MEDS: HYDRALAZINE HCL 50 MG TABLET PO SCH (11:24)
[2017-01-24] MEDS: CLONIDINE HCL 0.1 MG TABLET PO SCH (11:24)
--- NOTE | 2017-01-24 13:54 | PDOC PROGRESS REPORT ---
Subjective Progress Note for:: 01/24/17 Subjective:: patient remains in the hospital biopsies do show H.Pylori will need to be treated usually will need dual antibiotics to include amoxicillin and Biaxin will need to add Bismuth and a PPI if no allergies 14 day treatment Physical Exam Vital Signs: Temp Pulse Resp BP Pulse Ox 98.4 F 63 18 115/72 90 L 01/24/17 04:40 01/24/17 07:00 01/24/17 04:40 01/24/17 04:40 01/24/17 04:40 Intake & Output 01/23/17 01/24/17 01/25/17 06:59 06:59 06:59 Intake Total 1255 1080 Output Total 0 2100 Balance 1255 -1020 Weight 77.7 kg 77.8 kg General appearance: PRESENT: no acute distress, well-nourished Head exam: PRESENT: atraumatic, normocephalic Eye exam: PRESENT: EOMI, PERRLA. ABSENT: conjunctival injection, scleral icterus Mouth exam: PRESENT: moist Throat exam: ABSENT: tonsillar erythema, tonsillar exudate Neck exam: ABSENT: meningismus, tenderness, thyromegaly Respiratory exam: PRESENT: clear to auscultation molina, symmetrical, unlabored. ABSENT: rales, tachypnea Cardiovascular exam: PRESENT: RRR, +S1, +S2 GI/Abdominal exam: PRESENT: soft. ABSENT: ascites, rebound, rigid Gentrourinary exam: ABSENT: lesions Extremities exam: ABSENT: joint swelling Musculoskeletal exam: PRESENT: full ROM Neurological exam: PRESENT: oriented to time, oriented to situation, CN II-XII grossly intact Psychiatric exam: PRESENT: appropriate affect Skin exam: PRESENT: normal color. ABSENT: mottled, pallor, petechiae, urticaria , vesicles Results Laboratory Results: 01/23/17 06:00 01/23/17 06:00 01/21/17 01/21/17 01/22/17 20:50 20:50 05:54 Creatine Kinase 31 L 35 L CK-MB (CK-2) 1.00 Troponin I 0.125 01/22/17 01/22/17 01/22/17 05:54 13:58 13:58 Creatine Kinase 32 L CK-MB (CK-2) 0.87 0.96 Troponin I 0.141 0.148 Impressions: Femur X-Ray 01/17/17 20:52 IMPRESSION: NO RADIOGRAPHIC EVIDENCE OF ACUTE INJURY. Chest X-Ray 01/18/17 00:00 IMPRESSION: Interval improvement. Venous Doppler Study 01/19/17 00:00 IMPRESSION: NO EVIDENCE DVT OR SVT IN THE LEFT LEG. Hand X-Ray 01/23/17 00:00 IMPRESSION: NO RADIOGRAPHIC EVIDENCE OF ACUTE INJURY. OSTEOPENIA AND EROSIVE CHANGE ABOVE. CORRELATE WITH CLINICAL HISTORY OF INFLAMMATORY ARTHROPATHY SUCH RHEUMATOID. VASCULAR CALCIFICATIONS GREATER THAN EXPECTED FOR AGE. CORRELATE WITH CARDIOVASCULAR RISK FACTORS. Assessment & Plan - Diagnosis (1) Anemia requiring transfusions Is this a current diagnosis for this admission?: Yes (2) H. pylori infection Plan: treatment requires 14 days dual antibiotics [id number] BID Biaxin 500mg BID Bismuth chewables BID Omeprazole 20mg po daily follow up as outpatient - Time Time Spent with patient: 15-24 minutes
--- NOTE | 2017-01-24 16:05 | XCELERA REPORT ---
[address] [address] Upper Extremity Arterial Evaluation Name: NATHEN DING Age: 51 yrs Gender: Male : 1965 Patient Status: Inpatient Patient Location: \S\[facility]\S\A Study Date: 01/24/2017 09:09 AM Procedure: A duplex scan of the upper extremity arteries was performed on the right. Reason For Study: right arm, right middle finger gangrenous Ordering Physician: LALITHA BOOTHE Performed By: Rosana Mendoza Measurements and Calculations Right Left Mid SCLA PSV 105.5 cm/sec Ax A PSV 107.0 cm/sec Prox Brach A PSV 104.8 cm/sec Dist Brach A PSV 86.6 cm/sec Dist Rad A PSV 64.4 cm/sec Dist Ulnar A PSV 55.8 cm/sec Ax A PSV 107.0 cm/sec Dist Brach A PSV 86.6 cm/sec Dist Rad A PSV 64.4 cm/sec Dist Ulnar A PSV 55.8 cm/sec Mid SCLA PSV 105.5 cm/sec Prox Brach A PSV 104.8 cm/sec Right Side Arterial Evaluation Normal velocity and triphasic waveforms noted from the Common Carotid artery to the forearm vessels. 0 % stenosis noted. Interpretation Summary No hemodynamically significant lesions in the right upper extremity only, on duplex imaging, at rest. : LALITHA BOOTHE, Mariano >
[2017-01-24] MEDS: CINACALCET HCL 30 MG TABLET PO SCH (18:30)
[2017-01-24 18:59] VITALS: BP 142/74
== END 2017-01-24 19:52 | DRG 377 ==
LOC: ER 17:46 → EH 23:58 → UNDOADMIN 23:58 → EH 01-18 00:24 → 4S 01-18 03:34 → 4N 01-21 16:00
PROVIDERS: ADMIT Internal Medicine; ATTEND Internal Medicine
PROC: 30233N1 Transfusion of Nonautologous Red Blood Cells into Peripheral Vein, Percutaneous Approach (ICD-10-PCS; 2017-01-18)
PROC: 3E0F73Z Introduction of Anti-inflammatory into Respiratory Tract, Via Natural or Artificial Opening (ICD-10-PCS; 2017-01-18)
PROC: 5A1D60Z (ICD-10-PCS; 2017-01-18)
PROC: 02HV33Z Insertion of Infusion Device into Superior Vena Cava, Percutaneous Approach (ICD-10-PCS; 2017-01-18)
PROC: B548ZZA Ultrasonography of Superior Vena Cava, Guidance (ICD-10-PCS; 2017-01-18)
PROC: 5A09457 Assistance with Respiratory Ventilation, 24-96 Consecutive Hours, Continuous Positive Airway Pressure (ICD-10-PCS; 2017-01-19)
PROC: 0DB68ZX Excision of Stomach, Via Natural or Artificial Opening Endoscopic, Diagnostic (ICD-10-PCS; principal; 2017-01-19 14:00)
DX: K92.2 Gastrointestinal hemorrhage, unspecified (principal); N18.6 End stage renal disease; I13.2 Hypertensive heart and chronic kidney disease with heart failure and with stage 5 chronic kidney disease, or end stage renal disease; A04.7 Enterocolitis due to Clostridium difficile; E10.52 Type 1 diabetes mellitus with diabetic peripheral angiopathy with gangrene; I50.9 Heart failure, unspecified; D63.1 Anemia in chronic kidney disease; E87.5 Hyperkalemia; E10.22 Type 1 diabetes mellitus with diabetic chronic kidney disease; F17.210 Nicotine dependence, cigarettes, uncomplicated; J44.9 Chronic obstructive pulmonary disease, unspecified; H57.02 Anisocoria; W19.XXXA Unspecified fall, initial encounter; E10.40 Type 1 diabetes mellitus with diabetic neuropathy, unspecified; E10.319 Type 1 diabetes mellitus with unspecified diabetic retinopathy without macular edema; F14.10 Cocaine abuse, uncomplicated; E78.5 Hyperlipidemia, unspecified; M19.90 Unspecified osteoarthritis, unspecified site; K29.70 Gastritis, unspecified, without bleeding; B96.81 Helicobacter pylori [H. pylori] as the cause of diseases classified elsewhere; Z79.4 Long term (current) use of insulin; Z79.899 Other long term (current) drug therapy; Z86.73 Personal history of transient ischemic attack (TIA), and cerebral infarction without residual deficits; Z90.49 Acquired absence of other specified parts of digestive tract; Z88.6 Allergy status to analgesic agent; Z88.8 Allergy status to other drugs, medicaments and biological substances; Z91.013 Allergy to seafood; Z91.048 Other nonmedicinal substance allergy status; Z91.11 Patient's noncompliance with dietary regimen; Z91.15 Patient's noncompliance with renal dialysis; Z91.14 Patient's other noncompliance with medication regimen; Z60.2 Problems related to living alone; Z83.6 Family history of other diseases of the respiratory system; Z82.49 Family history of ischemic heart disease and other diseases of the circulatory system
CPT/HCPCS: 36415; 36430; 43239; 71010; 80048; 80053; 82272; 82550; 82553; 82607; 82728; 82746; 82962; 83540; 83550; 83735; 84100; 84484; 85025; 85027; 85045; 85610; 85730; 86850; 86900; 86901; 86920; 88305; 88342; 93005; 93010; 93931; 93971; 94640; 94660; 99285; J0171; J0360; J0610; J1200; J1610; J1815; J2250; J2270; J2310; J2405; J3010; J3430; J3475; J3490; J7620; P9016; Q4081; S0164